=== PATIENT | male | born 1960 | race Caucasian/White ===

== ENCOUNTER → 2017-11-18 12:57 | Outpatient (CLI) | payer BC, SELFPAY | PROVIDERS: PCP Family Medicine; Visit Provider Family Medicine | DX: G47.33 Obstructive sleep apnea (adult) (pediatric) (principal); R40.0 Somnolence; R53.83 Other fatigue | CPT/HCPCS: 95806 ==

== ENCOUNTER → 2019-07-23 08:55 | Outpatient (POV) | payer BC, SELFPAY | PROVIDERS: PCP Audiologist; Visit Provider Audiologist | DX: Z00.00 Encounter for general adult medical examination without abnormal findings (principal) ==

== ENCOUNTER → 2020-04-18 14:35 | Outpatient (CLI) | payer BC, SELFPAY ==
--- NOTE | 2020-04-18 14:38 | CT_ITS ---
PROCEDURE: CT SINUS WO CON CLINICAL HISTORY: CHRONIC SINUSITIS, UNSPECIFIED LOCATION Blood from sinuses COMPARISON: No exams were available for comparison TECHNIQUE: Axial images obtained with sagittal and coronal reformats. All CT scans at the facility use one or more dose reduction, viz: automated exposure control, ma/kV adjustment per patient size (including targeted exams where dose is matched to indication, i.e. head), or iterative reconstruction technique. FINDINGS: The frontal sinuses have an unremarkable appearance. There is a defect within the right ethmoid sinus within the mid aspect of the right ethmoid sinus 1.7 cm in length consistent with an old fracture. Remaining ethmoids are unremarkable. There is a 13 mm retention cyst in the left maxillary sinus. Unremarkable appearing sphenoid sinuses. Mastoid sinuses have an unremarkable appearance. The orbits and TMJs are unremarkable. IMPRESSION: 1. No evidence of acute sinusitis. 2. Old right medial orbital wall fracture. 3. Small retention cyst in the left maxillary sinus. Dictated by: Andrea Black MD 04/19/2020 12:40 Andrea Black MD in [place] 04/19/2020 12:40
== END ==
PROVIDERS: PCP Family Medicine; Visit Provider Family Medicine
DX: J32.9 Chronic sinusitis, unspecified (principal)
CPT/HCPCS: 70486

== ENCOUNTER → 2021-10-02 06:40 | Outpatient (CLI) | payer SELFPAY ==
--- NOTE | 2021-10-02 06:47 | CT_ITS ---
FINAL REPORT CLINICAL HISTORY: . family hx heart disease FINDINGS: CT CORONARY CALCIUM SCORE WITHOUT TECHNIQUE: Thin-section axial images were obtained through the heart and coronary arteries per CT coronary calcium score protocol. This study was performed with techniques to keep radiation doses as low as reasonably achievable, (ALARA). Individualized dose reduction techniques using automated exposure control or adjustment of mA and/or kV according to the patient's size were employed. FINDINGS: On the axial images, there is calcification within the left and right coronary arteries. This gives a coronary artery calcium score of 3876 based on the Agatston scale. This patient has coronary artery score places them within the 97th percentile based on age and gender. The heart size is normal. There is no pleural or pericardial effusion. Limited evaluation of the lungs revealed no suspicious nodule. IMPRESSION: Calcium score of 3876 which places the patient within the 97th percentile based on age and gender. Reviewed, Interpreted and Dictated by Ludwin Arellano III, MD Transcribed by Marti Ames Authenticated and [facility]
== END ==
PROVIDERS: PCP Family Medicine; Visit Provider Family Medicine
DX: Z13.6 Encounter for screening for cardiovascular disorders (principal); Z82.49 Family history of ischemic heart disease and other diseases of the circulatory system
CPT/HCPCS: 75571

== ENCOUNTER 2023-04-22 10:00 | Outpatient (CLI) | payer BC, SELFPAY ==
[2023-04-22 11:15] LABS: Blood Urea Nitrogen 23 mg/dl (9-20); Estimated Glomerular Filt Rate 56 ml/min (>60); GFR (African American) 67 ML/MIN (>60)
[2023-04-22 11:47] LABS: Prostate Specific Ag Screen 1.8 ng/ml (0.0-4.0)
== END 2023-04-22 23:59 ==
LOC: LAB 10:00
PROVIDERS: PCP Family Medicine; Visit Provider Urology
DX: N40.0 Benign prostatic hyperplasia without lower urinary tract symptoms (principal)
CPT/HCPCS: 36415; 82565; 84520; G0103

== ENCOUNTER 2024-03-02 09:07 | Outpatient (CLI) | payer BC, SELFPAY ==
[2024-03-02 10:57] LABS: Blood Urea Nitrogen 29 mg/dl (9-20); Estimated Glomerular Filt Rate 41 ml/min (>60); GFR (African American) 49 ML/MIN (>60)
[2024-03-03 08:14] LABS: PSA, Free 0.37 ng/mL; Prostate Specific Ag 0.8 ng/mL (0.0-4.0); Sex Hormone Binding Globulin 29.2 nmol/L (19.3-76.4); Testosterone,Total 328 ng/dL (264-916)
== END 2024-03-02 23:59 | disposition home or self-care (01) ==
LOC: LAB 09:08
PROVIDERS: PCP Family Medicine; Visit Provider Urology
DX: N40.0 Benign prostatic hyperplasia without lower urinary tract symptoms (principal); N52.9 Male erectile dysfunction, unspecified
CPT/HCPCS: 36415; 82565; 84153; 84154; 84270; 84403; 84520

== ENCOUNTER 2024-03-23 14:41 | Outpatient (CLI) | payer BC, SELFPAY ==
[2024-03-23 16:22] LABS: Blood Urea Nitrogen 28 mg/dl (9-20); Estimated Glomerular Filt Rate 47 ml/min (>60); GFR (African American) 57 ML/MIN (>60)
[2024-03-24 07:21] LABS: Prolactin 8.5 ng/mL (3.6-25.2); Sex Hormone Binding Globulin 31.8 nmol/L (19.3-76.4)
[2024-03-24 08:13] LABS: Estradiol 21.7 pg/mL (7.6-42.6); LH 7.7 mIU/mL (1.7-8.6); Testosterone,Total 338 ng/dL (264-916)
[2024-03-28 19:12] LABS: Dihydrotestosterone DHT 5.4 ng/dL (.)
== END 2024-03-23 23:59 | disposition home or self-care (01) ==
LOC: LAB 14:42
PROVIDERS: PCP Family Medicine; Visit Provider Urology
DX: N19 Unspecified kidney failure (principal); R53.83 Other fatigue; N40.0 Benign prostatic hyperplasia without lower urinary tract symptoms
CPT/HCPCS: 36415; 82565; 82626; 82670; 83001; 83002; 84146; 84270; 84403; 84520

== ENCOUNTER 2024-04-06 10:41 | Outpatient (CLI) | payer BC, SELFPAY ==
[2024-04-06 11:59] LABS: Blood Urea Nitrogen 26 mg/dl (9-20); Estimated Glomerular Filt Rate 44 ml/min (>60); GFR (African American) 53 ML/MIN (>60)
== END 2024-04-06 23:59 | disposition home or self-care (01) ==
LOC: LAB 10:41
PROVIDERS: PCP Family Medicine; Visit Provider Urology
DX: N19 Unspecified kidney failure (principal)
CPT/HCPCS: 36415; 82565; 84520

== ENCOUNTER 2024-04-07 10:24 | Outpatient (CLI) | payer BC, SELFPAY ==
--- NOTE | 2024-04-07 10:29 | XR_ITS ---
FINAL REPORT CLINICAL HISTORY: Renal failure pain in lower R back, especially when urinating COMPARISON: None FINDINGS: A single supine view the abdomen was obtained. The bowel gas pattern is nonspecific but nonobstructive. There are no convincing renal stones. Surgical clips are present in the right abdomen. Osseous structures are within normal limits. IMPRESSION: Nonspecific but nonobstructive bowel gas pattern. Reviewed, Interpreted and Dictated by Polina Pennington MD Transcribed by Nasrin Freeman Authenticated and [facility]
--- NOTE | 2024-04-07 10:37 | US_ITS ---
FINAL REPORT TECHNIQUE: Ultrasound images of the kidneys and bladder were obtained. CLINICAL HISTORY: .renal failure COMPARISON: None FINDINGS: The right kidney measures 14.0 cm in length. There is no hydronephrosis, mass, or stone. There is a very small exophytic cyst. Cortical echogenicity and thickness are normal. The left kidney measures 12.5 cm in length. There is no hydronephrosis. There is an echogenic focus in the mid left kidney, nonobstructing stone not excluded. Cortical echogenicity and thickness are normal. IMPRESSION: Very small right renal cyst. Possible left renal stone. Reviewed, Interpreted and Dictated by Polina Pennington MD Transcribed by Nasrin Freeman Authenticated and [facility]
== END 2024-04-07 23:59 | disposition home or self-care (01) ==
LOC: RAD 10:26
PROVIDERS: PCP Family Medicine; Visit Provider Urology
DX: N19 Unspecified kidney failure (principal)
CPT/HCPCS: 74018; 76770

== ENCOUNTER 2025-02-09 08:27 | Outpatient (CLI) | payer OTHER, SELFPAY ==
--- OUTSIDE RECORDS SUMMARY | 2023-12-13 04:00 | XMS_ITS ---
Author Organization [facility] Address [address] [place] [id number] Care Team Providers Care Ways Operator Name Role Phone Reinaldo Figueroa Primary Care Provider Allergies Allergen (clinical drug ingredient) Drug/Non Drug Allergy documented on EMR Reaction Allergy Type Onset Date Status niacin Niacin anaphylaxis Drug Allergy Activ e Results Component Value Reference Range Notes P-Basic Metabolic Panel (BMP ) Reviewed date:12/17/2023 04:19:09 PM Interpretation:bun 33, Cr 1.6, gfr 48 Performing Lab: Notes/Report: Test performed by [facility] [address] [place] [address] , [address], [place] [address] Mateusz Cortes MD, Negative Checker CLIA: [id number] Sodium 140 135-145 mmol/L Potassium 4.5 3.5-5.3 mmol/L Chloride 103 97-108 mmol/L CO2 25 22-32 mmol/L Glucose 95 65-99 mg/dL BUN 33 8-23 mg/dL Creatinine 1.60 0.70-1.30 mg/dL Calcium 9.8 8.6-10.4 mg/dL eGFR by Creatinine 48 >59 mL/min/1.73m2 P-Phosphorus Reviewed date:12/17/2023 04:19:10 PM Interpretation:Normal Performing Lab: Notes/Report: Test performed by [facility] [address] [place] [address] , [address], [place] [address] Mateusz Cortes MD, Negative Checker CLIA: [id number] Phosphorus 3.1 2.5-4.5 mg/dL P-Vitamin D 25-Hydroxy Reviewed date:12/17/2023 04:19:10 PM Interpretation:44.5 Performing Lab: Notes/Report: Test performed by [facility] [address] [place] [address] , [address], [place] [address] Mateusz Cortes MD, Negative Checker CLIA: [id number] Vitamin D 25-Hydroxy 44.5 30.0-100.0 ng/mL Interpretation of Vitamin D 25 OH: < 20 ng/mL - Deficiency 20 - 29 ng/mL - Insufficiency 30 - 100 ng/mL - Sufficiency > 100 ng/mL - Super-therapeutic- toxicity may occur above this level. Clinical correlation required. REASON FOR VISIT 6 month check Medications Medication SIG (Take, Route, Frequency, Duration) Notes Start Date End Date Status Irbesartan 300 MG 1 tab(s) orally once a day; Duration: 90 days 12/19/2020 Active Metoprolol Succinate ER 25 MG 1 tab(s) orally once a day; Duration: 90 days Active Finasteride 5 MG 1 tablet Orally Once a day; Duration: 30 day(s) Active oxyBUTYnin Chloride ER 10 MG 1 tablet Orally Once a day; Duration: 30 day(s) Active Crestor 40 MG 1 tab(s) orally once a day (at bedtime); Duration: 90 days Active Astepro 205.5 MCG/SPRAY 2 sprays in each nostril Nasally Once a day 12/13/2023 Active Alfuzosin HCl ER 10 MG 1 tablet immediat timo after the same meal Orally Once a day; Duration: 90 days 03/06/2023 Active Tamsulosin HCl 0.4 MG 1 capsule Orally O nce a day; Duration: 30 day(s) Active Zetia 10 MG 1 tab(s) orally once a day; Duration: 90 days 05/25/2022 Active Aspirin 81 MG 1 tablet Orally Once a day; Duration: 90 days Active Meloxicam 15 MG 1 tab(s) orally once a day; Duration: 90 days 01/01/2011 Active Synthroid 125 MCG 1 tab(s) orally once a day; Duration: 90 days Active Fenofibrate 145 MG 1 tab(s) orally once a day; Duration: 90 days Active Pantoprazole Sodium 40 MG 1 tab(s) orall y once a day; Duration: 90 days 06/07/2015 Active Vitamin D3 50 MCG (1999 UT) 2 tab(s) ora lly once a day 11/01/2017 Active Farxiga 10 MG 1 tablet Orally Once a day; Duration: 90 days 11/21/2022 Active amLODIPine Besylate 2.5 MG 1 tab(s) oral ly once a day; Duration: 90 days Active Immunizations Vaccine Route Administration Date Status Comme nts Fluzone Quad (6months&older) IM Intramuscular 12/13/2023 Administered Vital Signs Weight 250.8 lbs 12/13/2023 Blood pressure systolic 114 mm Hg 12/13/19 24 Blood pressure diastolic 71 mm Hg 024 Heart Rate 74 /min 12/13/2023 Height 72 in 12/13/2023 BMI 34.01 kg/m2 12/13/2023 Encounters Encounter Location Date [facility] [address] [id number] 12/13/2023 Reinaldo Figueroa Primary hypertension I10 ; Stage 3a chronic kidney disease N18.31 ; Vitamin D deficiency E55.9 ; Allergic rhinitis, unspecified seasonality, unspecified trigger J30.9 ; Encounter for immunization Z23 ; Onycholysis L60.1 ; Gastroesophageal reflux disease, esophagitis presence not specified K21.9 ; Hypertriglyceridemia E78.1 ; Mixed hyperlipidemia E78.2 ; Acquired hypothyroidism E03.9 and Polyarthralgia M25.50 Assessments Encounter Date Diagnosis (ICD Code) Assessment Notes Treatment Notes Treatment Clinical Notes Section Notes 12/13/2023 Primary hypertension (ICD-10 - I10) 12/13/2023 Stage 3a chronic kid everardo disease (ICD-10 - N18.31) 12/13/2023 Vitamin D deficiency (ICD-10 - E55.9) 12/13/2023 Allergic rhinitis, unspecified seasonality, unspecified trigger (ICD-10 - J30.9) 12/13/2023 Encounter for immunization (ICD-10 - Z23) 12/13/2023 Onycholysis (ICD-10 - L60.1) 12/13/2023 Gastroesophageal ref lux disease, esophagitis presence not specified (ICD-10 - K21.9) 12/13/2023 Hypertriglyceridemia (ICD-10 - E78.1) 12/13/2023 Mixed hyperlipidemia (ICD-10 - E78.2) 12/13/2023 Acquired hypothyroid ism (ICD-10 - E03.9) 12/13/2023 Polyarthralgia (ICD- 10 - M25.50) Plan Of Treatment Medication Medication Name Sig Start Date Stop Date Notes Irbesartan 300 MG 1 tab(s) orally once a day; Duration: 90 days 12/19/2020 Metoprolol Succinate ER 25 MG 1 tab(s) o rally once a day; Duration: 90 days Terbinafine HCl 250 MG 1 tablet Orally Once a day 06/13/19 Crestor 40 MG 1 tab(s) orally once a day (at bedtime); Duration: 90 days Astepro 205.5 MCG/SPRAY 2 sprays in each nostril Nasally Once a day 12/13/2023 Zetia 10 MG 1 tab(s) orally once a day; Duration: 90 days 05/25/2022 Aspirin 81 MG 1 tablet Orally Once a day; Duration: 90 days Meloxicam 15 MG 1 tab(s) orally once a day; Duration: 90 days 01/01/2011 Synthroid 125 MCG 1 tab(s) orally once a day; Duration: 90 days Fenofibrate 145 MG 1 tab(s) orally once a day; Duration: 90 days Pantoprazole Sodium 40 MG 1 tab(s) orall y once a day; Duration: 90 days 06/07/2015 Farxiga 10 MG 1 tablet Orally Once a day; Duration: 90 days 11/21/2022 amLODIPine Besylate 2.5 MG 1 tab(s) oral ly once a day; Duration: 90 days Next Appt Details Follow Up: 6 Months, Reason: Progress Notes * Cain NEWTONOB:1960 (64 yo M)Acc No.[id number]:12/13/2023 Progress Notes Patient: Ge ROBLES Provider: Grazyna Figueroa M.D. :1960 A ge:63 Y S ex:Male Date:12/13/2023 Address:[address] [place] [address] [place], [place], [id number] Subjective: * Chief Complaints: * 1 . 6 month check. * HPI: C ardiology: 63 year old male presents with c/o Blood Pressure Elevated P t here for 6 mo f/u on hypertension, states he is doing well and does not have any concerns. c/o Hyperlipidemia P t is fasting today. E ndocrinology: c/o Hypothyroidism P t here to f/u. * ROS: D ERMATOLOGY: no R camden. n o H zak. G ASTROENTEROLOGY: no N ausea. n o V omiting. U ROLOGY: no D ifficulty urinating. n o B lood in urine. * Medical History: H ypercholestrolemia, Hypothyroidism, Esophageal Reflux, Low Back Pain, h/o Lumbar Herniated Disc, Colon Polyps, Sleep Apnea, Coronary Artery Disease, abnormal coronary calcium score and stress test, PCI with stent 2021. * Surgical History: L umbar Spine Fusion 12/2002, LT Shoulder Labrum Repair 09/2005, L5 Diskectomy 09/07/2011, Cholecystectomy , Hernia , Colonoscopy, 2016 , Percutaneous Coronary Intervention 11/2021. * Hospitalization/Major Diagno stic Procedure: D luzmaria Past Hospitalization. * Family History: F ather: alive, heart disease. M other: alive. M aternal Grand Father: cancer. M aternal Grand Mother: cancer. M aternal uncle: cancer. M aternal aunt: cancer. C hildren: hyperlipidemia. 1 brother(s) , 1 sister(s) - healthy. 1 son(s) , 1 daughter(s) . . * Social History: C URRENT TOBACCO USE S moking Status: Patient does smoke, Former Smoker: Yes, Quit smokin, Smoking pack year history: 1, Second hand smoke exposure: No. C affeine: yes, frequency:. Marital Status: . Occupation: [employer]. Past smoking status: yes, Smoking status: Patient does smoke, Packs per day: 1. Recreational drug use: no. Alcohol: Yes, Type: , Frequency: ,Years: , Determination:. * Medications: T aking Tamsulosin HCl 0.4 MG Capsule 1 capsule Orally Once a day , Taking Aspirin 81 MG Tablet Delayed Release 1 tablet Orally Once a day , Taking oxyBUTYnin Chloride ER 10 MG Tablet Extended Release 24 Hour 1 tablet Orally Once a day , Taking Finasteride 5 MG Tablet 1 tablet Orally Once a day , Taking amLODIPine Besylate 2.5 MG Tablet 1 tab(s) orally once a day , Taking Vitamin D3 50 MCG (2000 UT) Capsule 2 tab(s) orally once a day , Taking Metoprolol Succinate ER 25 MG Tablet Extended Release 24 Hour 1 tab(s) orally once a day , Taking Crestor 40 MG Tablet 1 tab(s) orally once a day (at bedtime) , Taking Zetia 10 MG Tablet 1 tab(s) orally once a day , Taking Fenofibrate 145 MG Tablet 1 tab(s) orally once a day , Taking Pantoprazole Sodium 40 MG Tablet Delayed Release 1 tab(s) orally once a day , Taking Meloxicam 15 MG Tablet 1 tab(s) orally once a day , Taking Alfuzosin HCl ER 10 MG Tablet Extended Release 24 Hour 1 tablet immediately after the same meal Orally Once a day , Taking Synthroid 125 MCG Tablet 1 tab(s) orally once a day , Taking Irbesartan 300 MG Tablet 1 tab(s) orally once a day , Taking Farxiga 10 MG Tablet 1 tablet Orally Once a day , Taking Terbinafine HCl 250 MG Tablet 1 tablet Orally Once a day , Discontinued Brilinta 90 MG Tablet 1 tab(s) orally 2 times a day , Discontinued Nitroglycerin 0.4 MG/HR Patch 24 Hour 1 PATCH transdermally once a day , Discontinued Triamcinolone Acetonide 0.1 % Cream 1 eloy applied topically 3 times a day , Medication List reviewed and reconciled with the patient * Allergies: N iacin: anaphylaxis. Objective: * Vitals: W t:250.8, Temp:97.7, BP:114/71, HR:74, Nurse:booker, Ht: 72, BMI:34.01. * Examination: E ndocrinology: General Appearance: N AD. H EENT: u nremarkable.?Heart: R SR. L ungs: c lear to auscultation. E xtremities: n o leg edema.? Assessment: * Assessment: 1. P rimary hypertension - I10 (Primary) 2 . S tage 3a chronic kidney disease - N18.31 3 . V itamin D deficiency - E55.9 4 . A llergic rhinitis, unspecified seasonality, unspecified trigger - J30.9 5 . E ncounter for immunization - Z23 6 . O nycholysis - L60.1 7 . G astroesophageal reflux disease, esophagitis presence not specified - K21.9 8 . H ypertriglyceridemia - E78.1 9 . M ixed hyperlipidemia - E78.2 1 0. A cquired hypothyroidism - E03.9 1 1. P olyarthralgia - M25.50 Plan: * Treatment: 2. S tage 3a chronic kidney disease Refill Farxiga Tablet, 10 MG, 1 tablet, Orally, Once a day, 90 days, 90, Refills 1. L AB: P-Basic Metabolic Panel (BMP) (Collection Date & Time - 12/13/2023 08:30 AM) b un 33, Cr 1.6, gfr 48 Value Reference Range B UN 33 H 8-23 - mg/dL * C alcium 9.8 8.6-10.4 - mg/dL * C hloride 103 97-108 - mmol/L * C O2 25 22-32 - mmol/L * C reatinine 1.60 H 0.70-1.30 - mg/dL * G lucose 95 65-99 - mg/dL * P otassium 4.5 3.5-5.3 - mmol/L * S odium 140 135-145 - mmol/L * e GFR by Creatinine 48 L >59 - mL/min/1.73m2 * Jocelyne Rosas 12/17/2023 4:1 8:54 PM >See phone encounter ?LAB: P-Phosphorus (Collection Date & Time - 12/13/2023 08:30 AM)?Normal* Value Reference Range P hosphorus 3.1 2.5-4.5 - mg/dL * Jocelyne Rosas 12/17/2023 4:1 8:54 PM >See phone encounter 3.?Vitamin D deficiency?LAB: P-Vitamin D 25-Hydroxy (Collection Date & Time - 12/13/2023 08:30 AM)? 44.5* Value Reference Range V itamin D 25-Hydroxy 44.5 30.0-100.0 - ng/mL * Jocelyne Rosas 12/17/2023 4:1 8:54 PM >See phone encounter 4.?Allergic rhinitis, unspecified seasonality, unspecified trigger? Start Astepro Solution, 205.5 MCG/SPRAY, 2 sprays in each nostril, Nasally, Once a day.??5.?Onycholysis? Stop Terbinafine HCl Tablet, 250 MG, 1 tablet, Orally, Once a day.?? 6.?Gastroesophageal reflux disease, esophagitis presence not specified? Refill Pantoprazole Sodium Tablet Delayed Release, 40 MG, 1 tab(s), orally, once a day, 90 days, 90, Refills 1.??7.?Hypertriglyceridemia? Refill Fenofibrate Tablet, 145 MG, 1 tab(s), orally, once a day, 90 days, 90, Refills 1.??8.?Mixed hyperlipidemia? Refill Zetia Tablet, 10 MG, 1 tab(s), orally, once a day, 90 days, 90, Refills 1;?Refill Crestor Tablet, 40 MG, 1 tab(s), orally, once a day (at bedtime), 90 days, 90, Refills 1.??9.?Acquired hypothyroidism? Refill Synthroid Tablet, 125 MCG, 1 tab(s), orally, once a day, 90 days, 90, Refills 1.??10.?Polyarthralgia? Refill Meloxicam Tablet, 15 MG, 1 tab(s), orally, once a day, 90 days, 90, Refills 1.??11.?Others? Refill Aspirin Tablet Delayed Release, 81 MG, 1 tablet, Orally, Once a day, 90 days, 90, Refills 1. ? * Immunizations: Fluzone Quad (6months&older) : 0.5 mL (Route: Intramuscular) given by Neetu Fritz on Right Deltoid (Encounter for immunization) * Follow Up: 6 Months * Images: Billing Information: * Visit Code: 27710 Office Visit, Est Pt., Level 4. * Procedure Codes: * Electronic signature of Muriel Figueroa MD on 02/09/2025 at 08:32 AM EST Sign off status: Pending * Provider: Grazyna Figueroa M.D. Date: Generated for Printi ng/Melissa/Rodolfosmitting on: 1 04/12/2024 08:32 AM EST History and Physical Notes * HPI (History of Present Illness) Category Sub-Category Detail Notes Category Not es Endocrinology Hypothyroidism Pt here to f/u Cardiology Blood Pressure Elevated Pt here for 6 mo f/u on hypertension, states he is doing well and does not have any concerns Hyperlipidemia Pt is fasting today Examination Category Sub-Category Detail Notes Category Not es Endocrinology HEENT: unremarkable Heart: RSR Lungs: clear to auscultatio n Extremities: no leg edema General Appearance: NAD
--- OUTSIDE RECORDS SUMMARY | 2024-06-12 04:00 | XMS_ITS ---
Author Organization [facility] Address [address] [place] [phone] Care Team Providers Care Veneer Department Manager Name Role Phone Reinaldo Figueroa Primary Care Provider [phone] Allergies Allergen (clinical drug ingredient) Drug/Non Drug Allergy documented on EMR Reaction Allergy Type Onset Date Status niacin Niacin anaphylaxis Drug Allergy Activ e Results Component Value Reference Range Notes P-Comprehensive Metabolic Pa mitesh (CMP) Reviewed date:06/16/2024 09:18:19 AM Interpretation:Cr 1.62, gfr 47 Performing Lab: Notes/Report: Test performed by [facility] [address] [place] [address] , [address], [place] [address] Mateusz Cortes MD, Twitchell Operator CLIA: [id number] Sodium 137 135-145 mmol/L Potassium 4.6 3.5-5.3 mmol/L Chloride 101 97-108 mmol/L CO2 23 22-32 mmol/L Glucose 95 65-99 mg/dL BUN 22 8-23 mg/dL Creatinine 1.62 0.70-1.30 mg/dL Calcium 10.1 8.6-10.4 mg/dL eGFR by Creatinine 47 >59 mL/min/1.73m2 Protein 7.5 6.0-8.3 g/dL Albumin 4.4 3.5-5.3 g/dL Alkaline Phosphatase 40 40-129 IU/L ALT (SGPT) 18 <5-55 IU/L AST (SGOT) 10 <5-46 IU/L Bilirubin, Total 0.4 <0.2-1.2 mg/dL A/G Ratio 1.4 1.1-2.5 P-Lipid Panel Reviewed date:06/16/2024 09:18:19 AM Interpretation:hdl 38 Performing Lab: Notes/Report: Test performed by [facility] [address] [place] [address] , [place] [address] Mateusz Cortes MD, Twitchell Operator CLIA: [id number] Cholesterol 163 <200 mg/dL Triglycerides 135 <150 mg/dL HDL Cholesterol 38 >39 mg/dL Cholesterol / HDL Ratio 4.29 0.00-4.99 Ratio Non-HDL Cholesterol 125 <130 mg/dL LDL Cholesterol (Calculation) 98 <130 mg/dL LDL Cholesterol Levels* Less than 100 mg/dL Optimal 100 to 129 mg/dL Near Optimal/ Above Optimal 130 to 159 mg/dL Borderline High 160 to 189 mg/dL High 190 mg/dL and above Very High * Categories as recommended by the 2004 ATPIII guidelines LDL/HDL Ratio 2.6 <3.3 Ratio LDL Cholesterol Patient History Test Date: 06/13/2023 LDL Results: 139 Units: mg/dL % Change: - Test Date: 06/12/2024 LDL Results: 98 Units: mg/dL % Change: -29% P-TSH reflex to FT4 Reviewed date:06/16/2024 09:18:19 AM Interpretation: Normal Performing Lab: Notes/Report: Test performed by [facility] [address] [place] [address] , [address], [place] [address] Mateusz Cortes MD, Twitchell Operator CLIA: [id number] TSH reflex to FT4 1.10 0.43-5.25 mU/L P-Microalbumin/Creatinine, R andom Urine Sample Reviewed date:06/16/2024 09:18:19 AM Interpretation: Normal Performing Lab: Notes/Report: Test performed by [facility] [address] [place] [address] , [address], [place] [id number] Mateusz Cortes MD, Twitchell Operator CLIA: [id number] Albumin/Creatinine Ratio, Urine 9 0-30 ug/m g Microalbumin, Urine, Random 0.4 Creatinine, Urine 46.1 P-Vitamin D 25-Hydroxy Reviewed date:06/16/2024 09:18:19 AM Interpretation: Normal Performing Lab: Notes/Report: Test performed by [facility] [address] [place] [address] , [address], [place] [address] Mateusz Cortes MD, Twitchell Operator CLIA: [id number] Vitamin D 25-Hydroxy 55.7 30.0-100.0 ng/mL Interpretation of Vitamin D 25 OH: < 20 ng/mL - Deficiency 20 - 29 ng/mL - Insufficiency 30 - 100 ng/mL - Sufficiency > 100 ng/mL - Super-therapeutic- toxicity may occur above this level. Clinical correlation required. Reason For Referral Diagnosis 1 Benign prostatic hyp erplasia with lower urinary tract symptoms, symptom details unspecified (N40.1) Referral Organization [facility] Referring Provider First Name Reinaldo Referring Provider Last Name Carolina Referring Provider Speciality Family Pra ctice Referred Provider Del Drake Referred Provider Specialty Urology Referral Priority Routine REASON FOR VISIT 6 Month Check Up Medications Medication SIG (Take, Route, Frequency, Duration) Notes Start Date End Date Status Aspirin 81 MG 1 tablet Orally Once a day; Duration: 90 days Active oxyBUTYnin Chloride ER 10 MG 1 tablet Orally Once a day; Duration: 90 days Active Repatha 140 MG/ML 1 mL Subcutaneous Ev ирина 2 weeks Active Tamsulosin HCl 0.4 MG 1 capsule Orally O nce a day; Duration: 30 day(s) Active Zetia 10 MG 1 tab(s) orally once a day; Duration: 90 days 05/25/2022 Active Crestor 40 MG 1 tab(s) orally once a day (at bedtime); Duration: 90 days Active Synthroid 125 MCG 1 tab(s) orally once a day; Duration: 90 days Active Irbesartan 300 MG 1 tab(s) orally once a day; Duration: 90 days 12/19/2020 Active amLODIPine Besylate 2.5 MG 1 tab(s) oral ly once a day; Duration: 90 days Active Farxiga 10 MG 1 tablet Orally Once a day; Duration: 90 days 11/21/2022 Active Pantoprazole Sodium 40 MG 1 tab(s) orall y once a day; Duration: 90 days 06/07/2015 Active Fenofibrate 145 MG 1 tab(s) orally once a day; Duration: 90 days Active Metoprolol Succinate ER 25 MG 1 tab(s) orally once a day; Duration: 90 days Active Problems Problem Type SNOMED Code ICD Code Onset Dates Problem Status W/U Status Risk Notes Problem Lower urinary tract symptoms due to benign prostatic hypertrophy ([id number]) Benign prostatic hyperplasia with lower urinary tract symptoms, symptom details unspecified (N40.1) Active confirmed Vital Signs Weight 265 lbs 06/12/2024 Blood pressure systolic 122 mm Hg 06/13/19 25 Blood pressure diastolic 70 mm Hg 025 Heart Rate 73 /min 06/12/2024 Height 72 in 06/12/2024 BMI 35.94 kg/m2 06/12/2024 Encounters Encounter Location Date Provider Diagnosis [facility] [address] [place], [place] [id number] 06/12/2024 Reinaldo Guadalupe Primary hypertension I10 ; Mixed hyperlipidemia E78.2 ; Stage 3a chronic kidney disease N18.31 ; Coronary artery disease involving tolowa dee-ni' coronary artery of tolowa dee-ni' heart without angina pectoris I25.10 ; Obstructive sleep apnea syndrome G47.33 ; Gastroesophageal reflux disease, esophagitis presence not specified K21.9 ; Vitamin D deficiency E55.9 ; Non morbid obesity E66.9 and Benign prostatic hyperplasia with lower urinary tract symptoms, symptom details unspecified N40.1 Assessments Encounter Date Diagnosis (ICD Code) Assessment Notes Treatment Notes Treatment Clinical Notes Section Notes 06/12/2024 Primary hypertension (ICD-10 - I10) 06/12/2024 Mixed hyperlipidemia (ICD-10 - E78.2) 06/12/2024 Stage 3a chronic kidney disease (ICD-10 - N18.31) 06/12/2024 Coronary artery disease involving tolowa dee-ni' coronary artery of tolowa dee-ni' heart without angina pectoris (ICD-10 - I25.10) 06/12/2024 Obstructive sleep apnea syndrome (ICD-10 - G47.33) 06/12/2024 Gastroesophageal reflux disease, esophagitis presence not specified (ICD-10 - K21.9) 06/12/2024 Vitamin D deficiency (ICD-10 - E55.9) 06/12/2024 Non morbid obesity (ICD-10 - E66.9) 06/12/2024 Benign prostatic hyperplasia with lower urinary tract symptoms, symptom details unspecified (ICD-10 - N40.1) Plan Of Treatment Medication Medication Name Sig Start Date Stop Date Notes oxyBUTYnin Chloride ER 10 MG 1 tablet Or ally Once a day; Duration: 90 days Referrals Referral Date Details 06/12/2024 06/12/2024, Del Campbell Appt Details Follow Up: 6 Months, Reason: Progress Notes * Cain NEWTONOB:1960 (64 yo M)Acc No.[id number]:06/12/2024 Progress Notes Patient: Ge ROBLES Provider: Grazyna Figueroa M.D. :1960 A ge:63 Y S ex:Male Date:06/12/2024 Address:[address] [place] [address] Subjective: * Chief Complaints: * 1 . 6 Month Check Up. * HPI: C ardiology: 63 year old male presents with c/o Blood Pressure Elevated P t here for 6 mo f/u on hypertension, states he is doing well and does not have any concerns. c/o Hyperlipidemia P t is fasting today. E ndocrinology: c/o Hypothyroidism P t here to f/u . * ROS: D ERMATOLOGY: no R [place]. [...] affeine: yes, frequency:. Marital Status: . Occupation: [employer]. Past smoking status: yes, Smoking status: Patient does smoke, Packs per day: 1. Recreational drug use: no. Alcohol: Yes, Type: , Frequency: ,Years: , Determination:. * Medications: T aking Repatha 140 MG/ML Solution Prefilled Syringe 1 mL Subcutaneous Every 2 weeks , Taking Tamsulosin HCl 0.4 MG Capsule 1 capsule Orally Once a day , Taking oxyBUTYnin Chloride ER 10 MG Tablet Extended Release 24 Hour 1 tablet Orally Once a day , Taking Metoprolol Succinate ER 25 MG Tablet Extended Release 24 Hour 1 tab(s) orally once a day , Taking Irbesartan 300 MG Tablet 1 tab(s) orally once a day , Taking amLODIPine Besylate 2.5 MG Tablet 1 tab(s) orally once a day , Taking Farxiga 10 MG Tablet 1 tablet Orally Once a day , Taking Pantoprazole Sodium 40 MG Tablet Delayed Release 1 tab(s) orally once a day , Taking Fenofibrate 145 MG Tablet 1 tab(s) orally once a day , Taking Synthroid 125 MCG Tablet 1 tab(s) orally once a day , Taking Zetia 10 MG Tablet 1 tab(s) orally once a day , Taking Crestor 40 MG Tablet 1 tab(s) orally once a day (at bedtime) , Taking Aspirin 81 MG Tablet Delayed Release 1 tablet Orally Once a day , Discontinued Finasteride 5 MG Tablet 1 tablet Orally Once a day , Discontinued Vitamin D3 50 MCG (1999) Capsule 2 tab(s) orally once a day , Discontinued Astepro 205.5 MCG/SPRAY Solution 2 sprays in each nostril Nasally Once a day , Discontinued Meloxicam 15 MG Tablet 1 tab(s) orally once a day , Discontinued Alfuzosin HCl ER 10 MG Tablet Extended Release 24 Hour 1 tablet immediately after the same meal Orally Once a day , Medication List reviewed and reconciled with the patient * Allergies: N iacin: anaphylaxis. Objective: * Vitals: W t: 265, Temp: 97.8, BP: 122/70, HR: 73, Nurse: booker, Ht: 72, BMI:35.94. * Examination: E ndocrinology: General Appearance: N AD. H EENT: u nremarkable.?Heart: R SR. L ungs: c lear to auscultation. E xtremities: n o leg edema.? Assessment: * Assessment: 1. M ixed hyperlipidemia - E78.2 2 . P rimary hypertension - I10 3 . S tage 3a chronic kidney disease - N18.31 4 . C oronary artery disease involving tolowa dee-ni' coronary artery of tolowa dee-ni' heart without angina pectoris - I25.10 5. O bstructive sleep apnea syndrome - G47.33 6 . G astroesophageal reflux disease, esophagitis presence not specified - K21.9 7 . V itamin D deficiency - E55.9 8 . N on morbid obesity - E66.9 9 . B enign prostatic hyperplasia with lower urinary tract symptoms, symptom details unspecified - N40.1 ? Plan: * Treatment: Value Reference Range A /G Ratio 1.4 1.1-2.5 - * A lbumin 4.4 3.5-5.3 - g/dL * A lkaline Phosphatase 40 40-129 - IU/L * A LT (SGPT) 18 <5-55 - IU/L * A ST (SGOT) 10 <5-46 - IU/L * B ilirubin, Total 0.4 <0.2-1.2 - mg/dL * B UN 22 8-23 - mg/dL * C alcium 10.1 8.6-10.4 - mg/dL * C hloride 101 97-108 - mmol/L * C O2 23 22-32 - mmol/L * C reatinine 1.62 H 0.70-1.30 - mg/dL * G lucose 95 65-99 - mg/dL * P otassium 4.6 3.5-5.3 - mmol/L * S odium 137 135-145 - mmol/L * P rotein 7.5 6.0-8.3 - g/dL * e GFR by Creatinine 47 L >59 - mL/min/1.73m2 * Brittany Montoya 06/16/2024 09:1 8:12 AM > See phone encounter ?LAB: P-Lipid Panel (Collection Date & Time - 06/12/2024 08:49 AM)?hdl 38* Value Reference Range C holesterol / HDL Ratio 4.29 0.00-4.99 - Ratio * C holesterol 163 <200 - mg/dL * H DL Cholesterol 38 L >39 - mg/dL * L DL Cholesterol (Calculation) 98 <130 - mg/d L * L DL/HDL Ratio 2.6 <3.3 - Ratio * N on-HDL Cholesterol 125 <130 - mg/dL * T riglycerides 135 <150 - mg/dL * Brittany Montoya 06/16/2024 09:1 8:12 AM > See phone encounter ?LAB: P-TSH reflex to FT4 (Collection Date & Time - 06/12/2024 08:49 AM)? Normal* Value Reference Range T SH reflex to FT4 1.10 0.43-5.25 - mU/L * Brittany Montoya 06/16/2024 09:1 8:12 AM > See phone encounter 2.?Primary hypertension?LAB: P-Comprehensive Metabolic Panel (CMP) (Collection Date & Time - 06/12/2024 08:49 AM)?Cr 1.62, gfr 47* Value Reference Range A /G Ratio 1.4 1.1-2.5 - * A lbumin 4.4 3.5-5.3 - g/dL * A lkaline Phosphatase 40 40-129 - IU/L * A LT (SGPT) 18 <5-55 - IU/L * A ST (SGOT) 10 <5-46 - IU/L * B ilirubin, Total 0.4 <0.2-1.2 - mg/dL * B UN 22 8-23 - mg/dL * C alcium 10.1 8.6-10.4 - mg/dL * C hloride 101 97-108 - mmol/L * C O2 23 22-32 - mmol/L * C reatinine 1.62 H 0.70-1.30 - mg/dL * G lucose 95 65-99 - mg/dL * P otassium 4.6 3.5-5.3 - mmol/L * S odium 137 135-145 - mmol/L * P rotein 7.5 6.0-8.3 - g/dL * e GFR by Creatinine 47 L >59 - mL/min/1.73m2 * Brittany Montoya 06/16/2024 09:1 8:12 AM > See phone encounter ?LAB: P-Microalbumin/Creatinine, Random Urine Sample (Collection Date & Time - 06/12/2024 08:59 AM)?Normal* Value Reference Range A lbumin/Creatinine Ratio, Urine 9 0-30 - ug /mg * C reatinine, Urine 46.1 - mg/dL * M icroalbumin, Urine, Random 0.4 - mg/dL * LindsayBrittany camp 06/16/2024 09:1 8:12 AM > See phone encounter 3.?Stage 3a chronic kidney disease?LAB: P-Comprehensive Metabolic Panel (CMP) (Collection Date & Time - 06/12/2024 08:49 AM)?Cr 1.62, gfr 47* Value Reference Range A /G Ratio 1.4 1.1-2.5 - * A lbumin 4.4 3.5-5.3 - g/dL * A lkaline Phosphatase 40 40-129 - IU/L * A LT (SGPT) 18 <5-55 - IU/L * A ST (SGOT) 10 <5-46 - IU/L * B ilirubin, Total 0.4 <0.2-1.2 - mg/dL * B UN 22 8-23 - mg/dL * C alcium 10.1 8.6-10.4 - mg/dL * C hloride 101 97-108 - mmol/L * C O2 23 22-32 - mmol/L * C reatinine 1.62 H 0.70-1.30 - mg/dL * G lucose 95 65-99 - mg/dL * P otassium 4.6 3.5-5.3 - mmol/L * S odium 137 135-145 - mmol/L * P rotein 7.5 6.0-8.3 - g/dL * e GFR by Creatinine 47 L >59 - mL/min/1.73m2 * Brittany Montoya 06/16/2024 09:1 8:12 AM > See phone encounter 4.?Vitamin D deficiency?LAB: P-Vitamin D 25-Hydroxy (Collection Date & Time - 06/12/2024 08:49 AM)? Normal* Value Reference Range V itamin D 25-Hydroxy 55.7 30.0-100.0 - ng/mL * Brittany Montoya 06/16/2024 09:1 8:12 AM > See phone encounter 5.?Benign prostatic hyperplasia with lower urinary tract symptoms, symptom details unspecified? Referral To:eDl Drake??Urology ?Reason: 6.?Others? Refill oxyBUTYnin Chloride ER Tablet Extended Release 24 Hour, 10 MG, 1 tablet, Orally, Once a day,90 days, 90, Refills 1.?? * Procedure Codes: 3 074F SYST BP LT 130 MM HG, 3078F DIAST BP < 80 MM HG * Follow Up: 6 Months * Images: Billing Information: * Visit Code: 47793 Office Visit, Est Pt., Level 4. * Procedure Codes: 3074F SYST BP LT 130 MM HG. 3078F DIAST BP < 80 MM HG. * Electronic signature of Muriel Figueroa MD on 02/09/2025 at 08:32 AM EST Sign off status: Pending * Provider: Grazyna Figueroa M.D. Date: 0 06/12/2024 Generated for Jaimee cobos/Melissa/eTransmitting on: 1 04/12/2024 08:32 AM EST History [...] Extremities: no leg edema General Appearance: NAD Consultation Request Notes Referral Date Referring Provider Referred Provider Not es 06/12/2024 Reinaldo Figueroa Kevin
--- OUTSIDE RECORDS SUMMARY | 2024-09-24 05:15 | XMS_ITS ---
Author Organization [facility] Address [address] [place], [place] [id number] Care Team Providers Care Doctor Of Naprapathy Name Role Phone Reinaldo Figueroa Primary Care Provider [phone] Allergies Allergen (clinical drug ingredient) Drug/Non Drug Allergy documented on EMR Reaction Allergy Type Onset Date Status niacin Niacin anaphylaxis Drug Allergy Activ e Results Component Value Reference Range Notes P-Basic Metabolic Panel (BMP ) Reviewed date:09/25/2024 11:09:50 AM Interpretation:bun 26, Cr 1.43, gfr 54 Performing Lab: Notes/Report: Test performed by [facility] [address] [place] [address] , [address], [place] [address] Mateusz Cortes MD, Propeller Layout Worker CLIA: [id number] Sodium 138 135-145 mmol/L Potassium 4.6 3.5-5.3 mmol/L Chloride 103 97-108 mmol/L CO2 22 20-32 mmol/L Glucose 86 65-99 mg/dL BUN 26 8-23 mg/dL Creatinine 1.43 0.70-1.30 mg/dL Calcium 9.8 8.6-10.4 mg/dL eGFR by Creatinine 54 >59 mL/min/1.73m2 P-Phosphorus Reviewed date:09/25/2024 11:09:50 AM Interpretation:Normal Performing Lab: Notes/Report: Test performed by [facility] [address] [place] [address] , [address], [place] [address] Mateusz Cortes MD, Propeller Layout Worker CLIA: [id number] Phosphorus 3.4 2.5-4.5 mg/dL P-PSA Reviewed date:09/25/2024 11:09:50 AM Interpretation:Normal Performing Lab: Notes/Report: Test performed by [facility] [address] [place] [address] , [address], [place] [address] Mateusz Cortes MD, Propeller Layout Worker CLIA: [id number] PSA 1.57 <4.00 ng/mL Please note this is an ultrasensitive PSA assay with a lower limit of detection of 0.014 ng/mL. This test is performed by the [employer] ECLIA methodology. Values obtained with different assay methods or kits cannot be directly compared. P-Parathyroid Hormone (PTH) Intact Reviewed date:09/25/2024 11:09:50 AM Interpretation:Normal Performing Lab: Notes/Report: Test performed by [facility] [address] , [facility] [place] [address] Mateusz Cortes MD, Propeller Layout Worker CLIA: [id number] Parathyroid Hormone (PTH) Intact 23.8 15.0-65.0 pg/mL P-Vitamin D 25-Hydroxy Reviewed date:09/25/2024 11:09:50 AM Interpretation:Normal Performing Lab: Notes/Report: Test performed by [facility] [address] , [place] [address] Mateusz Cortes MD, Propeller Layout Worker CLIA: [id number] Vitamin D 25-Hydroxy 54.2 30.0-100.0 ng/mL Interpretation of Vitamin D 25 [place]: < 20 ng/mL - Deficiency 20 - 29 ng/mL - Insufficiency 30 - 100 ng/mL - Sufficiency > 100 ng/mL - Super-therapeutic- toxicity may occur above this level. Clinical correlation required. REASON FOR VISIT REFILLS AND BLOOD WORK Medications Medication SIG (Take, Route, Frequency, Duration) Notes Start Date End Date Status Pantoprazole Sodium 40 MG 1 tab(s) orall y once a day; Duration: 90 days Active Fenofibrate 145 MG Take 1 tablet by ning th once daily; Duration: 90 Active Ezetimibe 10 MG Take 1 tablet by ning th once daily; Duration: 90 Active Synthroid 125 MCG 1 tab(s) orally once a day; Duration: 90 days Active Crestor 40 MG 1 tab(s) orally once a day (at bedtime); Duration: 90 days Active oxyBUTYnin Chloride ER 10 MG 1 tablet Orally Once a day; Duration: 90 days Active Farxiga 10 MG 1 tablet Orally Once a day Active Metoprolol Succinate ER 25 MG 1 tab(s) orally once a day A ctive Irbesartan 300 MG 1 tab(s) orally once a day Active amLODIPine Besylate 2.5 MG 1 tab(s) orally once a day Active Aspirin 81 MG 1 tablet Orally Once a day; Duration: 90 days Active Repatha 140 MG/ML 1 mL Subcutaneous Ev ирина 2 weeks Active Tamsulosin HCl 0.4 MG 1 capsule Orally O nce a day; Duration: 30 day(s) Active Problems Problem Type SNOMED Code ICD Code Onset Dates Problem Status W/U Status Risk Notes Problem Obese class II ([id number]) BMI 36.0-36.9,a dult (Z68.36) Active confirmed Vital Signs Weight 265.8 lbs 09/24/2024 Blood pressure systolic 122 mm Hg 09/25/19 25 Blood pressure diastolic 72 mm Hg 025 Heart Rate 71 /min 09/24/2024 Height 72 in 09/24/2024 BMI 36.05 kg/m2 09/24/2024 Encounters Encounter Location Date Provider Diagnosis [facility] [address] [phone] 09/24/2024 Reinaldo Figueroa Primary hypertension I10 ; Stage 3a chronic kidney disease N18.31 ; Vitamin D deficiency E55.9 ; Prostate cancer screening Z12.5 ; Acquired hypothyroidism E03.9 ; Coronary artery disease involving tunica-biloxi coronary artery of tunica-biloxi heart without angina pectoris I25.10 ; Mixed hyperlipidemia E78.2 ; BMI 36.0-36.9,adult Z68.36 and Non morbid obesity E66.9 Assessments Encounter Date Diagnosis (ICD Code) Assessment Notes Treatment Notes Treatment Clinical Notes Section Notes 09/24/2024 Primary hypertension (ICD-10 - I10) 09/24/2024 Stage 3a chronic kidney disease (ICD-10 - N18.31) 09/24/2024 Vitamin D deficiency (ICD-10 - E55.9) 09/24/2024 Prostate cancer screening (ICD-10 - Z12.5) 09/24/2024 Acquired hypothyroidism (ICD-10 - E03.9) 09/24/2024 Coronary artery disease involving tunica-biloxi coronary artery of tunica-biloxi heart without angina pectoris (ICD-10 - I25.10) 09/24/2024 Mixed hyperlipidemia (ICD-10 - E78.2) 09/24/2024 BMI 36.0-36.9,adult (ICD-10 - Z68.36) 09/24/2024 Non morbid obesity (ICD-10 - E66.9) Plan Of Treatment Medication Medication Name Sig Start Date Stop Date Notes Farxiga 10 MG 1 tablet Orally Once a day Metoprolol Succinate ER 25 MG 1 tab(s) orally once a day Irbesartan 300 MG 1 tab(s) orally once a day amLODIPine Besylate 2.5 MG 1 tab(s) orally once a day Next Appt Details Follow Up: via phone to repo rt test results, Reason: Progress Notes * NEWTONCain WINCHESTEROB:1960 (64 yo M)Acc No.[id number]:09/24/2024 Progress Notes Patient: Ge ROBLSE Provider: Grazyna Figueroa M.D. :1960 A ge:64 Y S ex:Male Date:09/24/2024 Address:[address] [place] [address] Subjective: * Chief Complaints: * 1 . REFILLS AND BLOOD WORK. * HPI: C ardiology: 64 year old male presents with c/o Blood Pressure Elevated P t here for check up on hypertension. Pt states he is doing well and does not have any concerns.? c/o Hyperlipidemia P t is fasting today. [...] Diskectomy 09/07/2011, Cholecystectomy , Hernia , Colonoscopy, 2017 , Percutaneous Coronary Intervention 11/2021. * Hospitalization/Major Diagno stic Procedure: D enies Past Hospitalization. * Family History: F ather: [...] affeine: yes, frequency:. Marital Status: . Occupation: [employer]. Past smoking status: yes, Smoking status: Patient [...] tablet Orally Once a day , Taking Farxiga 10 MG Tablet 1 tablet Orally Once a day , Taking Ezetimibe 10 MG Tablet Take 1 tablet by mouth once daily , Taking Metoprolol Succinate ER 25 MG Tablet Extended Release 24 Hour 1 tab(s) orally once a day , Taking Synthroid 125 MCG Tablet 1 tab(s) orally once a day , Taking Crestor 40 MG Tablet 1 tab(s) orally once a day (at bedtime) , Taking Irbesartan 300 MG Tablet 1 tab(s) orally once a day , Taking Pantoprazole Sodium 40 MG Tablet Delayed Release 1 tab(s) orally once a day , Taking Fenofibrate 145 MG Tablet Take 1 tablet by mouth once daily , Taking amLODIPine Besylate 2.5 MG Tablet 1 tab(s) orally once a day , Medication List reviewed and reconciled with the patient * Allergies: N iacin: anaphylaxis. Objective: * Vitals: W t: 265.8, Temp: 98.0, BP: 122/72, HR: 71, Nurse: booker, Ht: 72, BMI:36.05. * Examination: E ndocrinology: General Appearance: N AD. H EENT: u nremarkable.?Heart: R SR. L ungs: c lear to auscultation. E xtremities: n o leg edema.? Assessment: * Assessment: 1. P rimary hypertension - I10 (Primary) 2 . S tage 3a chronic kidney disease - N18.31 3 . V itamin D deficiency - E55.9 4 . P rostate cancer screening - Z12.5 5 . A cquired hypothyroidism - E03.9 6 . C oronary artery disease involving tunica-biloxi coronary artery of tunica-biloxi heart without angina pectoris - I25.10 7 . M ixed hyperlipidemia - E78.2 8 . B [place] 36.0-36.9,adult - Z68.36 9 . N on morbid obesity - E66.9 Plan: * Treatment: 2. S tage 3a chronic kidney disease Continue Farxiga Tablet, 10 MG, 1 tablet, Orally, Once a day. L AB: P-Basic Metabolic Panel (BMP) (Collection Date & Time - 09/24/2024 09:55 AM) b un 26, Cr 1.43, gfr 54 Value Reference Range B UN 26 H 8-23 - mg/dL * C alcium 9.8 8.6-10.4 - mg/dL * C hloride 103 97-108 - mmol/L * C O2 22 20-32 - mmol/L * C reatinine 1.43 H 0.70-1.30 - mg/dL * G lucose 86 65-99 - mg/dL * P otassium 4.6 3.5-5.3 - mmol/L * S odium 138 135-145 - mmol/L * e GFR by Creatinine 54 L >59 - mL/min/1.73m2 * Brittany Montoya 09/25/2024 11:09 :44 AM EDT > See phone encounter ?LAB: P-Phosphorus (Collection Date & Time - 09/24/2024 09:55 AM)?Normal* Value Reference Range P hosphorus 3.4 2.5-4.5 - mg/dL * Brittany Montoya 09/25/2024 11:09 :44 AM EDT > See phone encounter ?LAB: P-Parathyroid Hormone (PTH) Intact (Collection Date & Time - 09/24/2024 09:55 AM)?Normal* Value Reference Range P arathyroid Hormone (PTH) Intact 23.8 15.0-65. 0 - pg/mL * Brittany Montoya 09/25/2024 11:09 :44 AM EDT > See phone encounter 3.?Vitamin D deficiency?LAB: P-Vitamin D 25-Hydroxy (Collection Date & Time - 09/24/2024 09:55 AM)? Normal* Value Reference Range V itamin D 25-Hydroxy 54.2 30.0-100.0 - ng/mL * Brittany Montoya 09/25/2024 11:09 :44 AM EDT > See phone encounter 4.?Prostate cancer screening?LAB: P-PSA (Collection Date & Time - 09/24/2024 09:55 AM)?Normal* Value Reference Range P SA 1.57 <4.00 - ng/mL * Brittany Montoya 09/25/2024 11:09 :44 AM EDT > See phone encounter * Procedure Codes: G 2211 Complex e/m visit add on, G8950 PREHTN/HTN BP DOC INDCD F/U DOC, G8752 MOST RECENT SYSTOLIC BP < 140MM HG, G8754 MOST RECENT DIASTOLIC BP < 90MM HG * Follow Up: v ia phone to report test results * Images: Drawing:[address] [facility] Billing Information: * Visit Code: 95047 Office Visit, Est Pt., Level 4. * Procedure Codes: G2211 Complex e/m visit add on. G8950 PREHTN/HTN BP DOC INDCD F/U DOC. G8752 MOST RECENT SYSTOLIC BP < 140MM HG. G8754 MOST RECENT DIASTOLIC BP < 90MM HG. * Electronic signature of Muriel Figueroa MD on 02/09/2025 at 08:32 AM EST Sign off status: Pending * Provider: Grazyna Figueroa M.D. Date: 0 09/24/2024 Generated for Jaimee cobos/Melissa/Mauro on: 1 04/12/2024 08:32 AM EST History and Physical Notes * HPI (History of Present Illness) Category Sub-Category Detail Notes Category Not es Endocrinology Hypothyroidism Pt here to f/u Cardiology Blood Pressure Elevated Pt here for check up on hypertension. Pt states he is doing well and does not have any concerns Hyperlipidemia Pt is fasting today Examination Category Sub-Category Detail Notes Category Not es Endocrinology HEENT: unremarkable Heart: RSR Lungs: clear to auscultatio n Extremities: no leg edema General Appearance: NAD
--- OUTSIDE RECORDS SUMMARY | 2024-11-06 05:45 | XMS_ITS ---
Author [facility] Address [address] [id number] Care Team Providers Care Orthotist Name Role Phone Reinaldo Figueroa Primary Care Provider [phone] Allergies Allergen (clinical drug ingredient) Drug/Non Drug Allergy documented on EMR Reaction Allergy Type Onset Date Status niacin Niacin anaphylaxis Drug Allergy Activ e REASON FOR VISIT shoulder pain Medications Medication SIG (Take, Route, Frequency, Duration) Notes Start Date End Date Status Dapagliflozin Propanediol 10 MG 1 tablet Orally Once a day; Duration: 90 days 09/28/2024 Active Ezetimibe 10 MG Take 1 tablet by ning once daily for 90 days; Duration: 90 Active dexAMETHasone 4 MG 1 tablet Orally twic e a day; Duration: 5 days 11/06/2024 Active Meloxicam 15 MG 1 tablet Orally ever y other day; Duration: 90 days 10/01/2024 Active amLODIPine Besylate 2.5 MG 1 tab(s) oral ly once a day; Duration: 90 days Active Aspirin 81 MG 1 tablet Orally Once a day; Duration: 90 days Active Fenofibrate 145 MG 1 tablet Orally Once a day; Duration: 90 days Active oxyBUTYnin Chloride ER 10 MG 1 tablet Orally Once a day; Duration: 90 days Active Repatha 140 MG/ML 1 mL Subcutaneous Ev ирина 2 weeks Active Tamsulosin HCl 0.4 MG 1 capsule Orally O nce a day; Duration: 30 day(s) Active Pantoprazole Sodium 40 MG 1 tab(s) orall y once a day; Duration: 90 days Active Crestor 40 MG 1 tab(s) orally once a day (at bedtime); Duration: 90 days Active Metoprolol Succinate ER 25 MG 1 tab(s) orally once a day; Duration: 90 days Active Irbesartan 300 MG 1 tab(s) orally once a day; Duration: 90 days Active Synthroid 125 MCG 1 tab(s) orally once a day; Duration: 90 days Active Vital Signs Weight 264 lbs 11/06/2024 Blood pressure systolic 124 mm Hg 11/07/19 25 Blood pressure diastolic 72 mm Hg 025 Heart Rate 70 /min 11/06/2024 Height 72 in 11/06/2024 BMI 35.8 kg/m2 11/06/2024 Encounters Encounter Location Date Provider Diagnosis [facility] 36 [facility] [address] [place] [phone] 11/06/2024 Reinaldo Figueora Acute pain of right shoulder M25.511 Assessments Encounter Date Diagnosis (ICD Code) Assessment Notes Treatment Notes Treatment Clinical Notes Section Notes 11/06/2024 Acute pain of right shoulder (ICD-10 - M25.511) Rest, ice, call with a progress report next week Plan Of Treatment Medication Medication Name Sig Start Date Stop Date Notes dexAMETHasone 4 MG 1 tablet Orally twic e a day; Duration: 5 days 11/06/2024 Treatment Notes Assessment Notes Acute pain of right shoulder Rest, ice, call with a progress report next week Next Appt Details Follow Up: via phone to repo rt progress, Reason: Progress Notes * Cain NEWTONOB:1960 (64 yo M)Acc No.[id number]:11/06/2024 Progress Notes Patient: Ge ROBLES Provider: Grazyna Figueroa M.D. :1960 A ge:64 Y S ex:Male Date:11/06/2024 Address:[address] [place] [address], [id number] Subjective: * Chief Complaints: * 1 . Shoulder pain. * HPI: S houlder/Upper arm: 64 year old male presents with c/o shoulder pain P t complains of excruciating rt should pain for 2 weeks. Pt states that pain radiated to upper arm. Pt states he was painting with a roller the day pain started but pt does not think that is what is the cause. Pt states that as long as he is not moving his arm the pain is tolerable. * Medical History: H ypercholestrolemia, Hypothyroidism, Esophageal [...] . * Social History: C URRENT TOBACCO USE: Yes S moking Status: Patient does smoke, Former Smoker: Yes, Quit smokin, Smoking pack year history: 1, Second hand smoke exposure: No. C affeine: yes, frequency:. Marital Status: . Occupation: [employer]. Past smoking status: yes, Smoking status: Patient does not smoke. Recreational drug use: no. Alcohol: Yes, Type: [...] tablet Orally Once a day , Taking Dapagliflozin Propanediol 10 MG Tablet 1 tablet Orally Once a day , Taking Ezetimibe 10 MG Tablet Take 1 tablet by mouth once daily for 90 days , Taking Meloxicam 15 MG Tablet 1 tablet Orally every other day , Taking amLODIPine Besylate 2.5 MG [...] , Taking Fenofibrate 145 MG Tablet 1 tablet Orally Once a day , Medication List reviewed and reconciled with the patient * Allergies: N iacin: anaphylaxis. Objective: * Vitals: W t: 264, Temp: 97.9, BP: 124/72, HR: 70, Nurse: booker, Ht: 72, BMI:35.8. * Examination: G eneral Examination: General Appearance: N AD. S houlder / Upper arm: Shoulder: r ight. I nspection: n o swelling or redness. P alpation: t enderness on subdeltoid bursa, tenderness over AC joint. R berry of motion: r estricted rotations and abduction. S trength: d iminished overall due to pain.? Assessment: * Assessment: 1. A cute pain of right shoulder - M25.511 (Primary) Plan: * Treatment: * Procedure Codes: G 2211 Complex e/m visit add on, 1036F TOBACCO NON-USER, G8783 BP SCR PRFRM RCMDD DEFIND SCR INTVL, G8752 MOST RECENT SYSTOLIC BP < 140MM HG, G8754 MOST RECENT DIASTOLIC BP < 90MM HG, 3074F SYST BP LT 130 MM HG, 3078F DIAST BP < 80 MM HG, 3017F COLORECTAL CA SCREEN DOC REV * Preventive Medicine: Screening / Special Tests: C olonoscopy Anshu miller, 06/16/2016 colonoscopy, repeat in 5 - 10 years. * Follow Up: sana ia phone to report progress * Images: Billing Information: * Visit Code: 64320 Office Visit, Est Pt., Level 3. * Procedure Codes: G2211 Complex e/m visit add on. 1036F TOBACCO NON-USER. G8783 BP SCR PRFRM RCMDD DEFIND SCR INTVL. G8752 MOST RECENT SYSTOLIC BP < 140MM HG. G8754 MOST RECENT DIASTOLIC BP < 90MM HG. 3074F SYST BP LT 130 MM HG. 3078F DIAST BP < 80 MM HG. 3017F COLORECTAL CA SCREEN DOC REV. * Electronic signature of Muriel Figueroa MD on 02/09/2025 at 08:32 AM EST Sign off status: Pending * Provider: Grazyna Figueroa M.D. Date: 0 11/06/2024 Generated for Jaimee cobos/Melissa/Jetitting on: 1 04/12/2024 08:32 AM EST History and Physical Notes * HPI (History of Present Illness) Category Sub-Category Detail Notes Category Not es Shoulder/Upper arm shoulder pain Pt complains of excruciating rt should pain for 2 weeks. Pt states that pain radiated to upper arm. Pt states he was painting with a roller the day pain started but pt does not think that is what is the cause. Pt states that as long as he is not moving his arm the pain is tolerable Examination Category Sub-Category Detail Notes Category Not es General Examination General Appearance: NAD Shoulder / Upper arm Range of motion: restricted rotations and abduction Strength: diminished overall d ue to pain Shoulder: right Inspection: no swelling or redne ss Palpation: tenderness on subdel toid bursa, tenderness over AC joint
--- OUTSIDE RECORDS SUMMARY | 2024-12-14 09:15 | XMS_ITS | Encounter Summary ---
Author Organization [facility] Address [address] [place] [address] Care Team Providers Care Marketing Education Teacher Name Role Phone Reinaldo Figueroa MD Primary Care Provider + [phone] Reason for Visit * Reason Comments Coronary Artery Disease Coronary artery disease involving coronary bypass graft of nooksack heart without angina pectoris Encounter Details Date Type Department Care Team (Late st Contact Info) Description 12/14/2024 10:15 AM EDT Office Visit [facility] [address] [place] [address] Per Sanchez III, MD [address] [place] [address] Coronary artery disease involving coronary bypass graft of nooksack heart without angina pectoris (Primary Dx); Mixed hyperlipidemia; Primary hypertension Social History Tobacco Use Types Packs/Day Years Used Date Smoking Tobacco: Former Cigarettes 1 45 0 08/18/1974 - 02/18/2017 Smokeless Tobacco: Never Tobacco Cessation:Counseling Given: Not Answered Alcohol Use Standard Drinks/Week Comments Yes 8 (1 standard drink = 0.6 oz pur e alcohol) 2 scots everyday AUDIT-C Answer Date Recorded Q1: How often do you have a drink containing alcohol? 4 or more times a week 12/08/2021 Q2: How many drinks containi ng alcohol do you have on a typical day when you are drinking? 3 or 4 Q3: How often do you have si x or more drinks on one occasion? Less than monthly 12/08/2021 Abuse Screen Answer Date Recorded Feels Unsafe at Home or Work/School no 12/08/2021 Feels Threatened by Someone no 11/19 Does Anyone Try to Keep You From Having Contact with Others or Doing Things Outside Your Home? no 12/08/2021 Physical Signs of Abuse Present no 12/08/2021 Housing Stability Answer Date Recorded Current Living Arrangements home 11/19 Potentially Unsafe Housing Conditions Not on jr e 12/08/2021 Disabilities Answer Date Recorded Difficulty Concentrating, Remembering or Making Decisions no 12/08/2021 Difficulty Managing Errands Independently no 12/08/2021 Sex and Gender Information Value Date Recorded Sex Assigned at Male 11/09/2024 4:04 PM EDT Legal Sex Male 1:24 PM EDT Gender Identity Not on file Sexual Orientation Straight 11/09/2024 4: 04 PM EDT documented as of this encounter Last Filed Vital Signs Vital Sign Reading Time Taken Comments Blood Pressure 130/78 12/14/2024 9:56 AM EDT Pulse 82 12/14/2024 9:56 AM EDT Temperature - - Respiratory Rate - - Oxygen Saturation 96% 12/14/2024 9:56 AM EDT Inhaled Oxygen Concentration - - Weight 119 kg (262 lb 9.6 oz) 12/14/2024 9:56 AM EDT Height 182.9 cm (6') 12/14/2024 9:56 AM EDT Body Mass Index 35.61 12/14/2024 9:56 AM EDT documented in this encounter Progress Notes * Per Sanchze III, MD - 12/14/2024 10:15 AM EDTAssociated Order(s): ECG 12 Lead Post-Procedure Diagnose(s): Coronary artery disease involving coronary bypass graft of nooksack heartwithout angina pectoris [facility] Cardiology Office visit Ge Keita Aman 1960 There is no work phone number on file. VISIT DATE: 12/14/2024 PCP: Reinaldo Figueroa MD [address] [place] [address] CC: Chief Complaint Patient presents with Coronary Artery Disease Coronary artery disease involving coronary bypass graft of nooksack heart without angina pectoris Previous cardiac studies and procedures: September 2021 coronary calcium score: 3876, 97 percentile. November 2021 exercise myocardial perfusion imaging The patient reported chest tightness at peak exercise which resolved in recovery. Expected exercise time 8;40 Actual time 5:58. Patient requested to stop d/t fatigue and chest tightness. Left ventricular ejection fraction is normal. (Calculated EF = 66%). A horizontal ST segment depression of 2 mm was noted during stress in the II, III, aVF, V6, V5, V4 and V3 leads, beginning at 4 minutes of stress, and returning to baseline after 5-9 minutes of recovery. Moderate region of moderately severe anterior septal, anterior and apical ischemia. High risk for ischemic heart disease. Cardiac catheterization Focal 90 to 95%, heavily calcified mid LAD stenosis treated with 3.0 x 18 mm TONA Proximal left circumflex chronic total occlusion Otherwise diffuse mild to moderate nonobstructive disease. ASSESSMENT: Diagnosis Plan 1. Coronary artery disease involving coronary bypass graft of nooksack heart without angina pectoris 2. Mixed hyperlipidemia 3. Primary hypertension PLAN: Coronary artery disease: Currently asymptomatic. Continue low-dose aspirin. Continue high intensitystatin therapy and afterload reduction. Heart healthy, plant-based diet. Hyperlipidemia: Goal LDL less than 70. Continue combination of Zetia, fenofibrate and rosuvastatin and PCSK9 inhibitor. Hypertension: Goal less than 130/80 mmHg. Associated stage III CKD. Currently well controlled. Continue current medical therapy. Subjective Denies chest discomfort. No limiting dyspnea on exertion or palpitations. Blood pressures running less than 130/80 mmHg. PHYSICAL EXAMINATION: Vitals: 12/14/24 0956 BP: 130/78 BP Location: Right arm Patient Position: Sitting Cuff Size: Adult Pulse: 82 SpO2: 96% Weight: 119 kg (262 lb 9.6 oz) Height: 182.9 cm (72 ) General Appearance: Alert, cooperative, no distress, appears stated age Lungs: Clear to auscultation bilaterally, respirations unlabored Chest Wall: No tenderness or deformity Heart: Regular rate and rhythm, S1 and S2 normal, no murmur, rub or gallop, normal carotid impulse bilaterally without bruit. Extremities: Extremities normal, atraumatic, no cyanosis or edema Pulses: 2+ and symmetric all extremities Skin: Skin color, texture, turgor normal, no rashes or lesions Diagnostic Data: ECG 12 Lead Date/Time: 12/14/2024 10:17 AM Performed by: Per Sanchez III, MD Authorized by: Per Sanchez III, MD Comparison: compared with previous ECG from 12/08/2021 Similar to previous ECG Rhythm: sinus rhythm Clinical impression: normal ECG Lab Results Component Value Date TRIG 94 12/08/2021 HDL 39 (L) 12/08/2021 Lab Results Component Value Date GLUCOSE 102 (H) 12/08/2021 BUN 19 12/08/2021 CREATININE 1.30 (H) 12/08/2021 NA 140 12/08/2021 K 4.6 12/08/2021 CL 104 12/08/2021 CO2 24.0 12/08/2021 Lab Results Component Value Date HGBA1C 5.90 (H) 12/08/2021 Lab Results Component Value Date WBC 6.49 12/08/2021 HGB 13.1 12/08/2021 HCT 40.3 12/08/2021 PLT 249 12/08/2021 Allergies Allergies Allergen Reactions Niacin Itching and Swelling Current Medications Current Outpatient Medications: amLODIPine (NORVASC) 2.5 MG tablet, Take 1 tablet by mouth Daily., Disp: 90 tablet, Rfl: 3 aspirin 81 MG EC tablet, Take 1 tablet by mouth Daily., Disp: 90 tablet, Rfl: 3 cholecalciferol (VITAMIN D3) 25 MCG (1000 UT) tablet, Take 1 tablet by mouth Daily., Disp: , Rfl: Evolocumab (Repatha SureClick) solution auto-injector SureClick injection, Inject 1 mL under the skin into the appropriate area as directed Every 14 (Fourteen) Days., Disp: 6 mL, Rfl: 4 ezetimibe (ZETIA) 10 MG tablet, Take 1 tablet by mouth Daily., Disp: , Rfl: Farxiga 10 MG tablet, Take 20 mg by mouth Daily., Disp: , Rfl: fenofibrate (TRICOR) 145 MG tablet, Take 1 tablet by mouth Daily., Disp: , Rfl: irbesartan (AVAPRO) 300 MG tablet, Take 1 tablet by mouth Daily., Disp: , Rfl: levothyroxine (SYNTHROID, LEVOTHROID) 125 MCG tablet, Take 1 tablet by mouth Daily., Disp: , Rfl: meloxicam (MOBIC) 15 MG tablet, Take 1 tablet by mouth Daily. (Patient taking differently: Take 1 tablet by mouth Every Other Day.), Disp: , Rfl: metoprolol succinate XL (TOPROL-XL) 25 MG 24 hr tablet, Take 1 tablet by mouth Daily. Need lab workfor further refills., Disp: 90 tablet, Rfl: 3 pantoprazole (PROTONIX) 40 MG EC tablet, Take 1 tablet by mouth Daily., Disp: , Rfl: rosuvastatin (CRESTOR) 40 MG tablet, Take 1 tablet by mouth every night at bedtime. Need lab work for further refills., Disp: 90 tablet, Rfl: 3 ROS ROS SOCIAL HX Social History Socioeconomic History Marital status: Tobacco Use Smoking status: Former Current packs/day: 0.00 Average packs/day: 1 pack/day for 45.0 years (45.0 ttl pk-yrs) Types: Cigarettes Start date: 08/18/1974 Quit date: 02/18/2017 Years since quittin.8 Smokeless tobacco: Never Vaping Use Vaping status: Former Quit date: 02/17/2022 Substances: Nicotine Substance and Sexual Activity Alcohol use: Yes Alcohol/week: 8.0 standard drinks of alcohol Types: 8 Glasses of wine per week Comment: 2 scots everyday Drug use: Never Sexual activity: Not Currently Partners: Female Comment: Need ti discuss possibility of taking meds for prostate FAMILY HX Family History Problem Relation Name Age of Onset Heart attack Mother Maykel Newton COPD Mother Maykel Newton Heart failure Mother Maykel Newton Heart disease Mother Maykel Newton Cause of was heart attack Heart disease Father Damion Newton Hyperlipidemia Father Damion Newton Heart attack Father Damion Newton Heart failure Father Damion Newton I confirm that all copied/forwarded documentation in this record has been carefully reviewed, updated as necessary, and accurately reflects the patient's current status and plan of care. Per Sanchez III, MD, [facility] documented in this encounter Plan of Treatment Upcoming Encounters Date Type Department Care Team (Late st Contact Info) Description 12/14/2025 11:15 AM EDT Office Visit [facility] [address] [place] [address] Per Sanchez III, MD [address] [place] [address] documented as of this encounter Procedures Procedure Name Priority Date/Time Associated Diagnosis Comments ECG 12-LEAD Routine 12/14/2024 Coronary artery disease involving coronary bypass graft of nooksack heart without angina pectoris documented in this encounter Results * ECG 12-LEAD (12/14/2024) Narrative 12/14/2024 Per Sanchez III, MD 12/14/2024 10:19 AM ECG 12 Lead Date/Time: 12/14/2024 10:17 AM Performed by: Per Sanchez III, MD Authorized by: Per Sanchez III, MD Comparison: compared with previous ECG from 12/08/2021 Similar to previous ECG Rhythm: sinus rhythm Clinical impression: normal ECG Procedure Note Per Sanchez III, MD - 12/14/2024 10:15 AM EDT [facility] Cardiology Office visit Ge Newton 1960 There is no work phone number on file. VISIT DATE: 12/14/2024 PCP: Reinaldo Figueroa MD [address] [place] [address] [place] [address] CC: Chief Complaint Patient presents with Coronary Artery Disease Coronary artery disease involving coronary bypass graft of nooksack heartwithout angina pectoris Previous cardiac studies and procedures: September 2021 coronary calcium score: 3876, 97 percentile. November 2021 exercise myocardial perfusion imaging The patient reported chest tightness at peak exercise which resolved inrecovery. Expected exercise time 8;40 Actual time 5:58. Patient requested to stopd/t fatigue and chest tightness. Left ventricular ejection fraction is normal. (Calculated EF = 66%). A horizontal ST segment depression of 2 mm was noted during stress inthe II, III, aVF, V6, V5, V4 and V3 leads, beginning at 4 minutes ofstress, and returning to baseline after 5-9 minutes of recovery. Moderate region of moderately severe anterior septal, anterior andapical ischemia. High risk for ischemic heart disease. Cardiac catheterization Focal 90 to 95%, heavily calcified mid LAD stenosis treated with 3.0 x 18mm TONA Proximal left circumflex chronic total occlusion Otherwise diffuse mild to moderate nonobstructive disease. ASSESSMENT: Diagnosis Plan 1. Coronary artery disease involving coronary bypass graft of nooksack heartwithout angina pectoris 2. Mixed hyperlipidemia 3. Primary hypertension PLAN: Coronary artery disease: Currently asymptomatic. Continue low-doseaspirin. Continue high intensity statin therapy and afterload reduction.Heart healthy, plant-based diet. Hyperlipidemia: Goal LDL less than 70. Continue combination of Zetia,fenofibrate and rosuvastatin and PCSK9 inhibitor. Hypertension: Goal less than 130/80 mmHg. Associated stage III CKD.Currently well controlled. Continue current medical therapy. Subjective Denies chest discomfort. No limiting dyspnea on exertion or palpitations.Blood pressures running less than 130/80 mmHg. PHYSICAL EXAMINATION: Vitals: 12/14/24 0956 BP: 130/78 BP Location: Right arm Patient Position: Sitting Cuff Size: Adult Pulse: 82 SpO2: 96% Weight: 119 kg (262 lb 9.6 oz) Height: 182.9 cm (72 ) General Appearance: Alert, cooperative, no distress, appears stated age Lungs: Clear to auscultation bilaterally, respirations unlabored Chest Wall: No tenderness or deformity Heart: Regular rate and rhythm, S1 and S2 normal, no murmur, rub orgallop, normal carotid impulse bilaterally without bruit. Extremities: Extremities normal, atraumatic, no cyanosis or edema Pulses: 2+ and symmetric all extremities Skin: Skin color, texture, turgor normal, no rashes or lesions Diagnostic Data: ECG 12 Lead Date/Time: 12/14/2024 10:17 AM Performed by: Per Sanchez III, MD Authorized by: Per Sanchez III, MD Comparison: compared with previousECG from 12/08/2021 Similar to previous ECG Rhythm: sinus rhythm Clinical impression: normal ECG Lab Results Component Value Date TRIG 94 12/08/2021 HDL 39 (L) 12/08/2021 Lab Results Component Value Date GLUCOSE 102 (H) 12/08/2021 BUN 19 12/08/2021 CREATININE 1.30 (H) 12/08/2021 NA 140 12/08/2021 K 4.6 12/08/2021 CL 104 12/08/2021 CO2 24.0 12/08/2021 Lab Results Component Value Date HGBA1C 5.90 (H) 12/08/2021 Lab Results Component Value Date WBC 6.49 12/08/2021 HGB 13.1 12/08/2021 HCT 40.3 12/08/2021 PLT 249 12/08/2021 Allergies Allergies Allergen Reactions Niacin Itching and Swelling Current Medications Current Outpatient Medications: amLODIPine (NORVASC) 2.5 MG tablet, Take 1 tablet by mouth Daily., Disp:90 tablet, Rfl: 3 aspirin 81 MG EC tablet, Take 1 tablet by mouth Daily., Disp: 90 tablet,Rfl: 3 cholecalciferol (VITAMIN D3) 25 MCG (1000 UT) tablet, Take 1 tablet bymouth Daily., Disp: , Rfl: Evolocumab (Repatha SureClick) solution auto-injector SureClickinjection, Inject 1 mL under the skin into the appropriate area asdirected Every 14 (Fourteen) Days., Disp: 6 mL, Rfl: 4 ezetimibe (ZETIA) 10 MG tablet, Take 1 tablet by mouth Daily., Disp: ,Rfl: Farxiga 10 MG tablet, Take 20 mg by mouth Daily., Disp: , Rfl: fenofibrate (TRICOR) 145 MG tablet, Take 1 tablet by mouth Daily., Disp:, Rfl: irbesartan (AVAPRO) 300 MG tablet, Take 1 tablet by mouth Daily., Disp:, Rfl: levothyroxine (SYNTHROID, LEVOTHROID) 125 MCG tablet, Take 1 tablet bymouth Daily., Disp: , Rfl: meloxicam (MOBIC) 15 MG tablet, Take 1 tablet by mouth Daily. (Patienttaking differently: Take 1 tablet by mouth Every Other Day.), Disp: , Rfl: metoprolol succinate XL (TOPROL-XL) 25 MG 24 hr tablet, Take 1 tablet bymouth Daily. Need lab work for further refills., Disp: 90 tablet, Rfl: 3 pantoprazole (PROTONIX) 40 MG EC tablet, Take 1 tablet by mouth Daily.,Disp: , Rfl: rosuvastatin (CRESTOR) 40 MG tablet, Take 1 tablet by mouth every nightat bedtime. Need lab work for further refills., Disp: 90 tablet, Rfl: 3 ROS ROS SOCIAL HX Social History Socioeconomic History Marital status: Tobacco Use Smoking status: Former Current packs/day: 0.00 Average packs/day: 1 pack/day for 45.0 years (45.0 ttl pk-yrs) Types: Cigarettes Start date: 08/18/1974 Quit date: 02/18/2017 Years since quittin.8 Smokeless tobacco: Never Vaping Use Vaping status: Former Quit date: 02/17/2022 Substances: Nicotine Substance and Sexual Activity Alcohol use: Yes Alcohol/week: 8.0 standard drinks of alcohol Types: 8 Glasses of wine per week Comment: 2 scots everyday Drug use: Never Sexual activity: Not Currently Partners: Female Comment: Need ti discuss possibility of taking meds for prostate FAMILY HX Family History Problem Relation Name Age of Onset Heart attack Mother Maykel Newton COPD Mother Maykel Newton Heart failure Mother Maykel Newton Heart disease Mother Maykel Newton Cause of was heart attack Heart disease Father Damion Newton Hyperlipidemia Father Damion Newton Heart attack Father Damion Newton Heart failure Father Damion Newton I confirm that all copied/forwarded documentation in this record has beencarefully reviewed, updated as necessary, and accurately reflects thepatient's current status and plan of care. Per Sanchez III, MD, [facility] Per Sanchez III, MD ECG ORDERABLES Final Resul t documented in this encounter Visit Diagnoses Diagnosis Coronary artery disease involving coronary bypass graft of nooksack heart without angina pectoris- Primary Mixed hyperlipidemia Primary hypertension Unspecified essential hypertension documented in this encounter Care Teams Marketing Education Teacher Relationship Specialty Start Date End Date Reinaldo Figueroa MD [address] [place] [address] PCP - General Family Medicine 10/31/21 documented as of this encounter
--- OUTSIDE RECORDS SUMMARY | 2024-12-17 09:46 | XMS_ITS | Encounter Summary ---
Author Organization Healthcare Address [address] [place] [address] Care Team Providers Care Roll Finisher Name Role Phone Reinaldo Figueroa MD Primary Care Provider + [phone] Encounter Details Date Type Department Care Team (Latest Contact Info) Description 12/17/2024 10:46 AM EDT - 12/17/2024 11:59 PM EDT Hospital Encounter [facility] [address] [place] [id number] Acute pain of right shoulder Discharge Disposition: Home or Self Care Social History Tobacco Use Types Packs/Day Years Used Date Smoking Tobacco: Former Passive Smoke Exposure: Past Smokeless Tobacco: Never Alcohol Use Standard Drinks/Week Comments Yes 0 (1 standard drink = 0.6 oz pure alcohol) Alcoholic Drinks/day: Social alcohol use PHQ-2 Answer Date Recorded Patient Health Questionnaire-2 Score 0 12/17/2024 Sex and Gender Information Value Date Recorded Sex Assigned at Male 12/18/2024 8:11 AM EDT Legal Sex Male 7:37 PM EDT Gender Identity Male 12/18/2024 8:11 AM EDT Sexual Orientation Not on file documented as of this encounter Functional Status * Over the past 2 weeks, how often have you been bothered by any of the following problems? Question Answer Date of Assessment Author Little interest or pleasure in doing things Not at all 12/17/2024 10:42 AM EDT Olga Soto Feeling down, depressed, or hopeless Not at all 12/17/2024 10:42 AM EDT Olga Soto Patient Health Questionnaire -2 Score 0 12/17/2024 10:42 AM EDT ColleenjustenMaría adamesa Rolando documented as of this encounter Medications at Time of Discharge amLODIPine (Norvasc) 2.5 MG tablet Take 1 tablet by mouth daily. 12/14/2024 aspirin 81 MG EC tablet Take 1 tablet by mouth daily. dapagliflozin (Farxiga) 10 MG tablet Take 1 tablet by mouth daily. 09/28/2024 dexamethasone (Decadron) 4 MG tablet Take 1 tablet by mouth 2 times a day. esomeprazole (NexIUM) [address] capsule 10/22/2013 Evolocumab (Repatha) 140 MG/ML solution prefilled syringe 1 mL Subcutaneous Every 2 weeks fenofibrate (Tricor) 145 MG tablet Take 1 tablet by mouth daily. finasteride (Proscar) 5 MG tablet Take 1 tablet by mouth daily. 12/29/2023 levothyroxine (Synthroid, Levoxyl) 125 MCG tablet Take 1 tablet by mouth. meloxicam (Mobic) 15 MG tablet Take 1 tablet by mouth. metoprolol succinate XL (Toprol-XL) 25 MG 24 hr tablet Take 1 tablet by mouth daily. 12/14/2024 rosuvastatin (Crestor) 40 MG tablet Take 1 tablet by mouth daily. 12/14/2024 tamsulosin (Flomax) 0.4 MG 24 hr capsule Take 1 capsule by mouth daily. 09/27/2024 traMADol (Ultram) 50 MG tablet Take 1 tablet by mouth every 8 hours as needed. oxybutynin XL (Ditropan-XL) 10 MG 24 hr tablet Take 1 tablet by mouth. 10/01/2024 5 documented as of this encounter Plan of Treatment Upcoming Encounters Date Type Department Care Team (Late st Contact Info) Description 03/22/2025 10:40 AM EST Procedure Visit [facility] [address], [address] [place] [address] Mercedes William, RESPIRATORY THERAPY DIRECTOR [address] [place] [address] documented as of this encounter Procedures Procedure Name Priority Date/Time Associated Diagnosis Comments XR SHOULDER RIGHT 2+ VIEWS Routine 12/17/2024 10:57 AM EDT Acute pain of right shoulder documented in this encounter Results * XR Shoulder Right 2+ Views (12/17/2024 10:57 AM EDT) Anatomical Region Laterality Modality Upper Extremities, Shoulder Right Digi ulysses Radiography Impressions 12/17/2024 11:08 AM EDT No acute osseous finding. Moderate glenohumeral and AC joint osteoarthrosis. CRITICAL RESULT: No. COMMUNICATION: Per this written report. Drafted by Joanne Osborne MD on 12/17/2024 11:07 AM Final report signed by Joanne Osborne MD on 12/17/2024 11:08 AM Narrative 12/17/2024 11:08 AM EDT CLINICAL INDICATION: pain TECHNIQUE: XR SHOULDER RIGHT 2+ VIEWS COMPARISON: Outside MR from 10/21/2024 FINDINGS: No acute fracture or dislocation. Moderate glenohumeral narrowing more inferiorly with inferior osteophytes. The AC joint is intact with moderate degenerative changes. No acute finding in the partially imaged chest. No significant soft tissue swelling. Procedure Note Joanne Osborne MD - 12/17/2024 CLINICAL INDICATION: pain TECHNIQUE: XR SHOULDER RIGHT 2+ VIEWS COMPARISON: Outside MR from 10/21/2024 FINDINGS: No acute fracture or dislocation. Moderate glenohumeral narrowing moreinferiorly with inferior osteophytes. The AC joint is intact with moderatedegenerative changes. No acute finding in the partially imaged chest. Nosignificant soft tissue swelling. IMPRESSION: No acute osseous finding. Moderate glenohumeral and AC jointosteoarthrosis. CRITICAL RESULT: No. COMMUNICATION: Per this written report. Drafted by Joanne Osborne MD on 12/17/2024 11:07 AM Final report signed by Joanne Osborne MD on 12/17/2024 11:08 AM Salazar Gardner MD IMG XR PROCEDURES Final Result documented in this encounter Visit Diagnoses Diagnosis Acute pain of right shoulder documented in this encounter Additional Health Concerns Assessment Noted Time A fall risk assessment has been complete d for the patient 12/17/2024 10:33 AM EDT A Body Mass Index follow-up plan has been documented for the patient 12/17/2024 12:07 PM EDT documented as of this encounter Care Teams Roll Finisher Relationship Specialty Start Date End Date Reinaldo Figueroa MD [id number] [place] [address] PCP - General 07/01/20 documented as of this encounter
--- OUTSIDE RECORDS SUMMARY | 2024-12-17 09:50 | XMS_ITS | Encounter Summary ---
Author Organization [facility] Address [address] [place] [address] Care Team Providers Care Prescriptionist Name Role Phone Reinaldo Figueroa MD Primary Care Provider [phone] Reason for Referral * Other Medical (Routine) - Closed Specialty Diagnoses / Procedures Referred By Mary Jane adames Referred To Contact Sports Medicine Diagnoses Glenohumeral arthritis, right Procedures Sports Medicine - USG Injection, Large Joint Mercedes William APRN [address] [facility] [address] [place] [address] Phone: tel: fax: [facility] Orthopaedic Surgery & Sports Medicine [address] [facility], [address] [place] [address] Phone: tel: fax: Referral ID Status Reason Start Date Expiration Date Visits Re quested Visits Authorized [id number] Closed 12/17/2024 06/18/2026 1 1 Reason for Visit * Reason Comments Pain * Consultation (Routine) - Closed Specialty Diagnoses / Procedures Referred By Mary Jane adames Referred To Contact Sports Medicine Diagnoses Pain in right shoulder Biceps tendon tear Unspecified rotator cuff tear or rupture of right shoulder, not specified as traumatic Reinaldo Figueroa MD [address] [place] [address] Phone: tel: fax: Salazar Gardner MD [address] [place] [address] Phone: tel: fax: Referral ID Status Reason Start Date Expiration Date V isits Requested Visits Authorized [id number] Closed Specialty Services Required 12/09/2024 06/10/2026 1 1 Encounter Details Date Type Department Care Team (Late st Contact Info) Description 12/17/2024 10:50 AM EDT Office Visit [facility] Orthopaedic Surgery & Sports Medicine [address] [place] [address] Salazar Gardner MD [address] [facility] [address] [place] [address] Glenohumeral arthritis, right (Primary Dx); Chronic right shoulder pain Social History Tobacco Use Types Packs/Day Years Used Date Smoking Tobacco: Former Passive Smoke Exposure: Past Smokeless Tobacco: Never Tobacco Cessation:Counseling Given: Not Answered Alcohol Use Standard Drinks/Week Comments Yes 0 [...] on file documented as of this encounter Last Filed Vital Signs Vital Sign Reading Time Taken Comments Blood Pressure 120/71 12/17/2024 10:31 AM EDT Pulse 81 12/17/2024 10:31 AM EDT Temperature - - Respiratory Rate - - Oxygen Saturation 98% 12/17/2024 10:31 AM EDT Inhaled Oxygen Concentration - - Weight 118 kg (260 lb) 12/17/2024 10:31 AM EDT Height 182.9 cm (6') 12/17/2024 10:31 AM EDT Body Mass Index 35.26 12/17/2024 10:31 AM EDT documented in this encounter Functional Status * Over the [...] -2 Score 0 12/17/2024 10:42 AM EDT Olga Soto documented as of this encounter Miscellaneous Notes * Progress Notes - Salazar Gardner MD - 12/17/2024 10:50 AM EDT History of present illness: Ge Newton is a 64 y.o. male who presents today as a new patient forevaluation of right shoulder pain. Patient states he was recently painting a piece of furniture when he noted right shoulder pain shortly after he was complete. Describes severe pain and was seen by his primary care provider who prescribed oral steroids. He notes no significant relief and was ultimately sent for an MRI which he brings with him today for review. Today he presents primarily with anterior lateral right shoulder pain. It is worse with any out reached or overhead activity. Does have some pain that extends up into the neck and down towards the elbow however his primary symptoms remain located at the shoulder. Denies any known injury. Of note has been seen in 2011 for left shoulder pain and was diagnosed with osteoarthritis. Previously discussed total shoulder arthroplasty however he wished to continue conservative treatment. I have reviewed and updated the patient's past medical history, past surgical history, social history, and family history. This is located both in the patient's note and their intake form that has been scanned into the medical record for today's visit. 14 point review of systems was reviewed per signed intake sheet and is otherwise negative except asnoted above. Objective: Constitutional: Well developed, well nourished, no acute distress HEENT: mucous membranes moist, normocephalic atraumatic Psychologic: appropriate mood and affect Chest: bilateral chest elevations, symmetric Cardiovascular: pink extremities, peripheral perfusion intact Respiratory: no respiratory distress, nonlabored on room air Abdomen: soft, nontender Neurologic: orientation to person, place and time Right SHOULDER EXAM There is no cervical tenderness and negative Spurling's. No obvious atrophy or deformity. No scapular dyskinesia. Patient has tenderness about the anterolateral shoulder. Active elevation is 150??, external rotation at the side 60??, internal rotation to T10. There is full passive range of motion. There is pain with elevation and resisted strength testing. There is pain with resisted external rotation. There is mild weakness to supraspinatus testing, no obvious weakness to external rotation. Lift-off test is normal. The patient has a painful arc of abduction and positive impingement signs. There is a negative speed's test and negative Yergason's test. There is no significant pain with cross-arm adduction. No signs of instability or apprehension. Distal neurovascular exam is normal. The patient has a warm and well-perfused upper extremity with capillary refill less than 2 seconds.Sensation is intact to light touch in terminal nerve distributions. The patient has no palpable epitrochlear lymphadenopathy. Imaging: X-Rays: Personally reviewed radiographs of the right shoulder obtained today three views which demonstratesmoderate glenohumeral osteoarthritis with osteophyte at the inferior humeral head. No evidence of acute fracture or dislocation. MRI: Personally reviewed of the right shoulder from an outside facility independently reviewed which demonstrates an intact rotator cuff in its entirety with no evidence of high-grade partial or full-thickness rotator cuff tear. Proximal biceps tendon is absent secondary to known tear. Moderate glenohumeral osteoarthritis mild joint fluid and cystic changes. Assessment/Plan Ge Newton is a 64-year-old male seen today with acute exacerbation of right shoulder pain secondary to glenohumeral osteoarthritis. We reviewed his radiographs and MRI. He does have a proximal biceps tendon rupture which is chronic and no longer causing pain. We discussed his glenohumeral osteoarthritis and recommended conservative treatment to include an ultrasound-guided glenohumeral joint injection. Patient is agreeable to proceeding with the injection. We will have this scheduled to be performed with our primary care sports medicine obtained today. Will scheduled him for follow-up in 3 month for repeat evaluation. documented in this encounter Plan of Treatment Upcoming Encounters Date Type Department Care Team (Late st Contact Info) Description 03/22/2025 10:40 AM EST Procedure Visit [facility] Orthopaedic Surgery & Sports Medicine [address] [facility], [address] [place] [id number] Mercedes William, STEM MOUNTER [address] [facility] [address] [place] [address] documented as of this encounter Results * WA ARTHROCENTESIS ASPIR&/INJ MAJOR JT/BURSA W/US (12/17/2024 11:20 AM EDT) Narrative ThomasKathe rachel, DO - 12/17/2024 11:20 AM EDT ThomasKathe adames, DO 12/17/2024 12:07 PM Sports Medicine - USG Injection, Large Joint: R glenohumeral Indications: pain Details: 25 G needle, ultrasound-guided posterior approach Medications: 50 mg lidocaine 1 %; 2 mL ropivacaine 5 MG/ML; 40 mg Kenalog-40 40 MG/ML Outcome: tolerated well, no immediate complications US Guided Procedure Note: Indication: Osteoarthritis Procedure: Sonographically guided right glenohumeral joint corticosteroid injection Informed Consent: Following denial of allergy and review of potential side effects and complications including, but not limited to, infection, allergic reaction, local tissue breakdown, systemic effects of corticosteroids, elevation of blood glucose, injury to soft tissue and/or nerves and seizure, the patient indicated understanding and agreed to proceed. Procedural pause conducted to verify: correct patient identity, procedure to be performed and, as applicable, correct side and site, correct patient position, availability of any special equipment or other special requirements. Justification for use of ultrasound guidance: The use of direct sonographic visualization of the needle (rather than a non-guided injection) was required to ensure accurate injection placement for diagnostic specificity, to maximize clinical efficacy and for safety purposes to minimize risk of bleeding or injury to nearby neurovascular structures. Technique: The procedure was carried out under sterile technique utilizing a sterile ultrasound transducer cover and sterile ultrasound gel. Pre-procedural scanning was performed to determine optimal needle approach for the procedure. The patient was prepped and draped in the usual sterile fashion. Patient position: lateral decubitus Approach: in plane Local anesthesia: 5 mL 1% Lidocaine Aspiration/Injection: Live sonographic guidance with a 5-1 mHz curvilinear array transducer was used throughout the procedure. A 25g 2 inch needle was used for local anesthesia and was guided into the glenohumeral joint. With the needle in place, syringes were exchanged. After reconfirmation of needle placement, a mixture of 1cc 0.5% Ropivicaine and 1cc 40mg/mL Kenalog was injected into the glenohumeral joint. Post-Procedure Instructions: The patient tolerated the procedure well without complication and was discharged in good condition after a short observation period. The patient was instructed to avoid submerging the procedure site in water for 48-72 hours. The patient was instructed to contact me with any questions pertaining to the procedure and to inform me of the results of the procedure in approximately 7-10 days, as needed. Questions regarding general management should be directed to the patient's referring provider and the patient should keep all previously scheduled follow up appointments. Multiple jalloh images were saved. Impression: Successful sonographically-guided right glenohumeral joint corticosteroid injection. Procedure, treatment alternatives, risks and benefits explained, specific risks discussed. Consent was given by the patient. Immediately prior to procedure a time out was called to verify the correct patient, procedure, equipment, it support specialist and site/side marked as required. Patient was prepped and draped in the usual sterile fashion. us Mercedes William APRN IN CLINIC/BEDSIDE ORDERA NIURKA Edited Result - Final * XR Shoulder Right 2+ Views (12/17/2024 [...] documented in this encounter Visit Diagnoses Diagnosis Glenohumeral arthritis, right- Primary Chronic right shoulder pain Pain in joint, shoulder region Acute pain of right shoulder Glenohumeral arthritis, right- Primary Acute pain of right shoulder documented in this encounter Additional Health Concerns Assessment Noted Time A fall risk assessment has been complete d for the patient 12/17/2024 10:33 AM EDT A Body Mass Index follow-up plan has been documented for the patient 12/17/2024 12:07 PM EDT documented as of this encounter Care Teams Prescriptionist Relationship Specialty Start Date End Date Reinaldo Figueroa MD [address] [place] [address] PCP - General 07/01/20 documented as of this encounter
--- OUTSIDE RECORDS SUMMARY | 2024-12-17 10:20 | XMS_ITS | Encounter Summary ---
Author Organization [facility] Address [address] [place] [address] Care Team Providers Care Automotive Mechanical Engineer Name Role Phone Reinaldo Figueroa MD Primary Care Provider [phone] Reason for Visit * Other Medical (Routine) - Closed Specialty Diagnoses / Procedures Referred By Mary Jane adames Referred To Contact Sports Medicine Diagnoses Glenohumeral arthritis, right Procedures Sports Medicine - USG Injection, Large Joint Mercedes William, PROFESSIONAL BONDSMAN [address] [facility] [address] [place] [address] Phone: tel: fax: [facility] Orthopaedic Surgery & Sports Medicine [address] [facility], [address] [place] [address] Phone: tel: fax: Referral ID Status Reason Start Date Expiration Date Visits Re quested Visits Authorized [id number] Closed 12/17/2024 06/18/2026 1 1 Encounter Details Date Type Department Care Team (Late st Contact Info) Description 12/17/2024 11:20 AM EDT Procedure Visit [facility] Orthopaedic Surgery & Sports Medicine [address] [facility], [address] [place] [phone] Kathe Thomas, DO [address] [facility] [address] [place] [phone] Glenohumeral arthritis, right (Primary Dx); Acute pain of right shoulder Social History Tobacco Use Types Packs/Day Years [...] encounter Miscellaneous Notes * Progress Notes - Kateh Thomas DO - 12/17/2024 11:20 AM EDTAssociated Order(s): Sports Medicine - USG Injection, Large Joint: R glenohumeral Pre-Procedure Diagnose(s): Glenohumeral arthritis, right Post-Procedure Diagnose(s): Glenohumeral arthritis, right Procedure Note Encounter Date: 12/17/2024 Chief Complaint: Right shoulder pain Ge Newton is a 64 y.o. male here as a referral from Mercedes William APRN for [facility] Sports Medicine - USG Injection, Large Joint: [...] injury to soft tissue and/or nerves and seizure,the patient indicated understanding and agreed to proceed. Procedural pause conducted to verify: correct patient identity, procedure to be performed and, as applicable, correct side and site, correct patient position, availability of any special equipment orother special requirements. Justification for use of ultrasound [...] gel. Pre-procedural scanning was performed to determine optimalneedle approach for the procedure. The patient was [...] The patient was instructed to contact me withany questions pertaining to the procedure and to [...] time out was called to verify the correctpatient, procedure, equipment, other sales support worker and site/side marked as required. Patient was prepped and draped in the usual sterile fashion. Assessment and Plan: Diagnosis Plan 1. Glenohumeral arthritis, right Sports Medicine - USG Injection, Large Joint: R glenohumeral triamcinolone acetonide (Kenalog-40) injection 40 mg ropivacaine (Naropin) injection 2 mL lidocaine (Xylocaine) 1 % injection 50 mg 2. Acute pain of right shoulder After discussing risks and benefits, including but not limited to bleeding, infection and worseningpain, the patient wished to proceed with the procedure today. See procedure note. Post-injection care instructions were provided. Follow up with Dr. Gardner as scheduled Electronically Signed by: Kathe Thomas DO - 12/17/2024 - 12:07 PM documented in this encounter Plan of Treatment Upcoming Encounters Date Type Department Care Team (Late st Contact Info) Description 03/22/2025 10:40 AM EST Procedure Visit [facility] Orthopaedic Surgery & Sports Medicine [address] [facility], [address] [place] [address] Mercedes William, PROFESSIONAL BONDSMAN [address] [facility] [address] [place] [address] documented as of this encounter Procedures Procedure Name Priority Date/Time Associated Diagnosis Comments RI ARTHROCENTESIS ASPIR&/INJ MAJOR JT/BURSA W/US Routine 12/17/2024 11:20 AM EDT Glenohumeral arthritis, right documented in this encounter Results * RI ARTHROCENTESIS ASPIR&/INJ MAJOR JT/BURSA W/US (12/17/2024 11:20 AM EDT) Narrative Kathe Thomas DO - 12/17/2024 11:20 AM EDT Kathe Thomas DO 12/17/2024 12:07 PM Sports Medicine - [...] to verify the correct patient, procedure, equipment, other sales support worker and site/side marked as required. Patient was prepped and draped in the usual sterile fashion. us Mercedes William APRN IN CLINIC/BEDSIDE ORDERArtur Victor Result - Final documented in this encounter Visit Diagnoses Diagnosis Glenohumeral arthritis, right- Primary Acute pain of right shoulder documented in this encounter Administered Medications Inactive Administered Medications - up to 3 most recent administrations Medication Order MAR Action Action Date Dose Rate Site lidocaine (Xylocaine) 1 % injection 50 mg 50 mg, Intra-articular, Once PRN Procedure, 1 dose, Starting on Leatha 12/17/24 at 1120, Until Leatha 12/17/24 at 1120, RoutineIndications:Glenohumeral arthritis, right Given 12/17/2024 11:20 AM EDT 50 mg ropivacaine (Naropin) injection 2 mL 2 mL, Injection, Once PRN Procedure, 1 dose, Starting on Leatha 12/17/24 at 1120, Until Leatha 12/17/24 at 1120, RoutineIndications:Glenohumeral arthritis, right Given 12/17/2024 11:20 AM EDT 2 mL triamcinolone acetonide (Kenalog-40) injection 40 mg 40 mg, Intra-articular, Once PRN Procedure, 1 dose, Starting on Leatha 12/17/24 at 1120, Until Leatha 12/17/24 at 1120, RoutineIndications:Glenohumeral arthritis, right Given 12/17/2024 11:20 AM EDT 40 mg documented in this encounter Additional Health Concerns Assessment Noted Time A fall risk assessment has been complete d for the patient 12/17/2024 10:33 AM EDT A Body Mass Index follow-up plan has been documented for the patient 12/17/2024 12:07 PM EDT documented as of this encounter Care Teams Automotive Mechanical Engineer Relationship Specialty Start Date End Date Reinaldo Figueroa MD [address] [facility] [address], [place] [address] PCP - General 07/01/20 documented as of this encounter
--- OUTSIDE RECORDS SUMMARY | 2024-12-21 09:15 | XMS_ITS ---
Author Organization [facility] Address [address] [id number] Care Team Providers Care Print Shop Assistant Name Role Phone Reinaldo Figueroa Primary Care Provider Allergies Allergen (clinical drug ingredient) Drug/Non Drug Allergy documented on EMR Reaction Allergy Type Onset Date Status niacin Niacin anaphylaxis Drug Allergy Activ e REASON FOR VISIT lower back pain Medications Medication SIG (Take, Route, Frequency, Duration) Notes Start Date End Date Status Meloxicam 15 MG 1 tablet Orally ever y other day; Duration: 90 days 10/01/2024 Active Ezetimibe 10 MG Take 1 tablet by ning once daily for 90 days; Duration: 90 Active amLODIPine Besylate 2.5 MG 1 tab(s) oral ly once a day; Duration: 90 days Active traMADol HCl 50 MG 1 tablet as needed O rally every 8 hrs 11/12/2024 Active Aspirin 81 MG 1 tablet Orally Once a day; Duration: 90 days Active Tamsulosin HCl 0.4 MG 1 capsule Orally O nce a day; Duration: 30 day(s) Active Repatha 140 MG/ML 1 mL Subcutaneous Ev ирина 2 weeks Active Dapagliflozin Propanediol 10 MG 1 tablet Orally Once a day; Duration: 90 days 09/28/2024 Active oxyBUTYnin Chloride ER 10 MG 1 tablet Orally Once a day; Duration: 90 days Active Pantoprazole Sodium 40 MG 1 tab(s) orall y once a day; Duration: 90 days Active Crestor 40 MG 1 tab(s) orally once a day (at bedtime); Duration: 90 days Active Irbesartan 300 MG 1 tab(s) orally once a day; Duration: 90 days Active Metoprolol Succinate ER 25 MG Take 1 tablet by mouth once daily; Duration: 90 Active Levothyroxine Sodium 125 MCG Take 1 tablet by mouth once daily; Duration: 90 Active Fenofibrate 145 MG 1 tablet Orally Once a day; Duration: 90 days Active Problems Problem Type SNOMED Code ICD Code Onset Dates Problem Status W/U Status Risk Notes Problem Sciatica (27868505) Lumbago with sciatica, right side (M54.41) Active confirmed Problem Sciatica (87234421) Lumbago with sciatica, left side (M54.42) Active confirmed Problem Chronic pain (39410448) Other chronic pain (G89.29) Active confirmed Vital Signs Weight 262.6 lbs 12/21/2024 Blood pressure systolic 126 mm Hg 12/22/19 25 Blood pressure diastolic 78 mm Hg 025 Heart Rate 97 /min 12/21/2024 Height 72 in 12/21/2024 BMI 35.61 kg/m2 12/21/2024 Encounters Encounter Location Date Provider Diagnosis [facility] [address] [facility] [address] [place], [place] [id number] 12/21/2024 Reinaldo Elton Lumbago with sciatic a, right side M54.41 ; Lumbago with sciatica, left side M54.42 and Other chronic pain G89.29 Assessments Encounter Date Diagnosis (ICD Code) Assessment Notes Treatment Notes Treatment Clinical Notes Section Notes 12/21/2024 Lumbago with sciatica, right side (ICD-10 - M54.41) 12/21/2024 Lumbago with sciatica, left side (ICD-10 - M54.42) 12/21/2024 Other chronic pain (ICD-10 - G89.29) Medical records reviewed, [facility] Plan Of Treatment Treatment Notes Assessment Notes Other chronic pain Medical records revi ewed, will provide [facility] to [facility]'s [facility] Next Appt Details Follow Up: prn, Reason: Progress Notes * Jorge NEWTON:1960 (64 yo M)Acc No.[id number]:12/21/2024 Progress Notes Patient: Ge ROBLES Provider: Grazyna Figueroa M.D. :1960 A ge:64 Y S ex:Male Date:12/21/2024 Address:[facility] [address] [facility] [address] [id number] Subjective: * Chief Complaints: * 1 . Lower back pain. * HPI: Rolando owestella back: 64 year old male presents with c/o Low Back Pain P t states he is here follow up on lower back pain. Pt states he has not been in due to dealing with [facility] and trying to get his [facility]. Pt states the [facility] was supposed to [facility]. Pt states he is needing a [facility] letter. Pt states the pain is in his lower back and going into both legs. Pt states it is a sharp, shooting pain. Pt states any type of movement causes his back to hurt. * Medical History: H ypercholestrolemia, Hypothyroidism, Esophageal [...] affeine: yes, frequency:. Marital Status: . Occupation: [employer]. Past smoking status: yes, Smoking status: Patient [...] tab(s) orally once a day , Taking traMADol HCl 50 MG Tablet 1 tablet as needed Orally every 8 hrs , Taking Fenofibrate 145 MG Tablet 1 tablet Orally Once a day , Taking Irbesartan 300 MG Tablet 1 tab(s) orally once a day , Taking Crestor 40 MG Tablet 1 tab(s) orally once a day (at bedtime) , Taking Pantoprazole Sodium 40 MG Tablet Delayed Release 1 tab(s) orally once a day , Taking Levothyroxine Sodium 125 MCG Tablet Take 1 tablet by mouth once daily , Taking Metoprolol Succinate ER 25 MG Tablet Extended Release 24 Hour Take 1 tablet by mouth once daily , Discontinued dexAMETHasone 4 MG Tablet 1 tablet Orally twice a day , Medication List reviewed and reconciled with the patient * Allergies: N iacin: anaphylaxis. Objective: * Vitals: W t: 262.6, Temp: 98.0, BP: 126/78, HR: 97, Nurse: THEODORE, Ht: 72, BMI:35.61. * Examination: G eneral Examination: General Appearance: N AD. Assessment: * Assessment: 1. L umbago with sciatica, right side - M54.41 (Primary) 2 . L umbago with sciatica, left side - M54.42 3 . O ther chronic pain - G89.29 Plan: * Treatment: * Procedure Codes: G 2211 Complex e/m visit add on * Follow Up: p rn * Images: Billing Information: * Visit Code: 10521 Office Visit, Est Pt., Level 3. * Procedure Codes: G2211 Complex e/m visit add on. * Electronic signature of Muriel Figueroa MD on 02/09/2025 at 08:33 AM EST Sign off status: Pending * Provider: Grazyna Figueroa M.D. Date: 02/21/2024 Generated for Jaimee cobos/Melissa/Mauro on: 04/12/2024 08:33 AM EST History and Physical Notes * HPI (History of Present Illness) Category Sub-Category Detail Notes Category Not es Lower back Low Back Pain Pt states he is here follow up on lower back pain. Pt states he has not been in due to dealing [facility] and trying to get his disibility. Pt states the [facility] was supposed to send him paperwork. Pt states he is needing a [facility] letter. Pt states the pain is in his lower back and going into both legs. Pt states it is a sharp, shooting pain. Pt states any type of movement causes his back to hurt Examination Category Sub-Category Detail Notes Category Not es General Examination General Appearance: NAD
--- OUTSIDE RECORDS SUMMARY | 2025-02-09 08:31 | XMS_ITS | Encounter Summary ---
Author Organization Healthcare Address [address] [place] [address] Care Team Providers Care Slab Inspector Name Role Phone Reinaldo Figueroa MD Primary Care Provider [phone] Encounter Details Date Type Department Care Team (Late st Contact Info) Description 11/17/2024 Orders Only External Location [address] [place] [address] Provider, External Social History Tobacco Use Types Packs/Day Years Used Date Smoking Tobacco: Former Alcohol Use Standard Drinks/Week Comments Yes 0 (1 standard drink = 0.6 oz pure alcohol) Alcoholic Drinks/day: Social alcohol use Sex and Gender Information Value Date Recorded Sex Assigned at Male 12/18/2024 8:11 AM EDT Legal Sex Male 7:37 PM EDT Gender Identity Male 12/18/2024 8:11 AM EDT Sexual Orientation Not on file documented as of this encounter Plan of Treatment Upcoming Encounters Date Type Department Care Team (Late st Contact Info) Description 03/22/2025 10:40 AM EST Procedure Visit [facility] Orthopaedic Surgery & Sports Medicine [address] [facility], [address] [place] [address] Mercedes William, SPORTS COORDINATOR [address] [facility] [place] [address] documented as of this encounter Procedures Procedure Name Priority Date/Time Associated Diagnosis Comments MR MSK OUTSIDE IMAGES 11/17/2024 7:33 AM EDT documented in this encounter Results * MR MSK OUTSIDE IMAGES (11/17/2024 7:33 AM EDT) Anatomical Region Laterality Modality Magnetic Resonan ce 11/17/2024 7:33 AM EDT us External Provider IMG MRI PROCEDURES Final Resul t documented in this encounter Visit Diagnoses Not on filedocumented in this encounter Care Teams Slab Inspector Relationship Specialty Start Date End Date Reinaldo Figueroa MD [address] [place] [address] PCP - General 07/01/20 documented as of this encounter
--- OUTSIDE RECORDS SUMMARY | 2025-02-09 08:31 | XMS_ITS ---
Author Organization Unknown Vital Signs BpStanding BpSitting BpSupine Date Temperature HeartRate Weight Hei ght Spo2 Respiration Bmi HeadCircumference FieldCount TimeRecorded NeckCircumferen ce WaistCircumference Pulse Custom 126/78 12/21 00:00 :00 98.0 97 262,9.6 0 6,0 35.6 1 6 01/31/2025 14:15:00 124/72 11/06 00:00 :00 97.9 70 264,0 6,0 35.8 6 01/31/2025 10:45:00 122/72 09/24 00:00 :00 98.0 71 265,12. 80 6,0 36.0 5 6 01/31/2025 10:15:00 122/70 06/12 00:00 :00 97.8 73 265,0 6,0 35.9 4 6 01/31/2025 09:00:00 114/71 12/12 00:00 :00 97.7 74 250,12. 80 6,0 34.0 1 6 01/31/2025 09:00:00 120/80 06/12 00:00 :00 98.0 64 249,3.2 0 6,0 33.7 9 6 01/31/2025 09:30:00 120/78 03/06 00:00 :00 98.0 58 234,6.4 0 6,0 31.7 9 6 01/31/2025 09:15:00 120/72 11/13 00:00 :00 97.8 54 239,0 6,0 32.4 1 6 01/31/2025 09:45:00 108/76 10/01 00:00 :00 97.5 63 248,0 6,0 33.6 3 6 01/31/2025 09:00:00 130/84 07/12 00:00 :00 97.5 66 245,6.4 0 6,0 33.2 8 6 01/31/2025 09:00:00 112/74 03/30 00:00 :00 98.0 64 241,0 6,0 32.6 8 6 01/31/2025 09:00:00
--- OUTSIDE RECORDS SUMMARY | 2025-02-09 08:31 | XMS_ITS | Encounter Summary ---
Author Organization [facility] Address [address] [place] [address] Care Team Providers Care Spotter Name Role Phone Reinaldo Figueroa MD Primary Care Provider + [phone] Encounter Details Date Type Department Care Team (Latest Contact Info) Description 12/16/2024 Travel Social History Tobacco Use Types Packs/Day Years [...] 10:40 AM EST Procedure Visit [facility] Orthopaedic Surgery & Sports Medicine [address], [address] [place] [address] Mercedes William, LEAD PRESS OPERATOR [address] [facility] [place] [address] documented as of this encounter Visit Diagnoses Not on filedocumented in this encounter Care Teams Spotter Relationship Specialty Start Date End Date Reinaldo Figueroa MD [address] [place] [id number] PCP - General 07/01/20 documented as of this encounter
--- OUTSIDE RECORDS SUMMARY | 2025-02-09 08:31 | XMS_ITS | Encounter Summary ---
Author Organization Healthcare Address [address] [place] [address] Care Team Providers Care Animal Groomer Name Role Phone Reinaldo Figueroa MD Primary Care Provider + [phone] Encounter Details Date Type Department Care Team (Late st Contact Info) Description 12/14/2024 Orders Only External Location [address] [place] [address] Provider, External Social History Tobacco Use Types [...] Olga Soto documented as of this encounter Plan of Treatment Upcoming Encounters Date Type Department Care Team (Late st Contact Info) Description 03/22/2025 10:40 AM EST Procedure Visit [facility] Orthopaedic Surgery & Sports Medicine [address], [address] [place] [address] Mercedes William, HYDRAULIC OPERATOR [address] [place] [address] documented as of this encounter Procedures Procedure Name Priority Date/Time Associated Diagnosis Comments POC ULTRASOUND 12/14/2024 documented in this encounter Results * POC Imaging (12/14/2024) Anatomical Region Laterality Modality Pelvis Other 12/14/2024 us External Provider IMG POINT OF CARE ULTRASOUND F inal Result documented in this encounter Visit Diagnoses Not on filedocumented in this encounter Care Teams Animal Groomer Relationship Specialty Start Date End Date Reinaldo Figueroa MD [address] [place], [place] [phone] PCP - General 07/01/20 documented as of this encounter
--- OUTSIDE RECORDS SUMMARY | 2025-02-09 08:32 | XMS_ITS | Patient Health Record ---
Author Organization [facility] Address [address] [place], [place] [id number] Care Team Providers Care County Engineer Name Role Phone Reinaldo Figueroa Primary Care Provider [phone] Allergies Allergen (clinical drug ingredient) Drug/Non Drug Allergy documented on EMR Reaction Allergy Type Onset Date Status niacin Niacin anaphylaxis Drug Allergy Activ e Results Component Value Reference Range Notes P-Comprehensive Metabolic Pa mitesh (CMP) Reviewed date:06/16/2024 09:18:19 AM Interpretation:Cr 1.62, gfr 47 Performing Lab: Notes/Report: CLIA: [id number] Mateusz Cortes MD, Application Systems Architect [address] , [address], [place] [address] Test performed by [employer], [facility] Sodium 137 135-145 mmol/L Potassium 4.6 3.5-5.3 [...] 09:18:19 AM Interpretation:hdl 38 Performing Lab: Notes/Report: CLIA: [id number] Mateusz Cortes MD, Application Systems Architect [address] [place] [address] , [address], [place] [address] Test performed by [employer], [facility] Cholesterol 163 <200 mg/dL Triglycerides 135 <150 [...] Normal Performing Lab: Notes/Report: Test performed by [facility] [address] [place] [address] , [place] [address] Mateusz Cortes MD, Application Systems Architect CLIA: [id number] TSH reflex to FT4 1.10 0.43-5.25 mU/L P-Microalbumin/Creatinine, R andom Urine Sample Reviewed date:06/16/2024 09:18:19 AM Interpretation: Normal Performing Lab: Notes/Report: CLIA: [id number] Mateusz Cortes MD, Application Systems Architect [address] [place] [address] , [place] [address] Test performed by [employer] [facility] Albumin/Creatinine Ratio, Urine 9 0-30 ug/mg Microalbumin, Urine, Random 0.4 Creatinine, Urine 46.1 P-Vitamin D 25-Hydroxy Reviewed date:06/16/2024 09:18:19 AM Interpretation: Normal Performing Lab: Notes/Report: Test performed by [facility] [address] [place] [address] , [place] [address] Mateusz Cortes MD, Application Systems Architect CLIA: [id number] Vitamin D 25-Hydroxy 55.7 30.0-100.0 ng/mL Interpretation of Vitamin D 25 OH: < 20 ng/mL - Deficiency 20 - 29 ng/mL - Insufficiency 30 - 100 ng/mL - Sufficiency > 100 ng/mL - Super-therapeutic- toxicity may occur above this level. Clinical correlation required. P-Basic Metabolic Panel (BMP ) Reviewed date:09/25/2024 11:09:50 AM Interpretation:bun 26, Cr 1.43, gfr 54 Performing Lab: Notes/Report: CLIA: [id number] Mateusz Cortes MD, Application Systems Architect [address] [place] [address] , [place] [address] Test performed by [facility] Sodium 138 135-145 mmol/L Potassium 4.6 3.5-5.3 mmol/L Chloride 103 97-108 mmol/L CO2 22 20-32 mmol/L Glucose 86 65-99 mg/dL BUN 26 8-23 mg/dL Creatinine 1.43 0.70-1.30 mg/dL Calcium 9.8 8.6-10.4 mg/dL eGFR by Creatinine 54 >59 mL/min/1.73m2 P-Phosphorus Reviewed date:09/25/2024 11:09:50 AM Interpretation:Normal Performing Lab: Notes/Report: Test performed by [facility] [address] [place] [address] , [place] [address] Mateusz Cortes MD, Application Systems Architect CLIA: [id number] Phosphorus 3.4 2.5-4.5 mg/dL P-PSA Reviewed date:09/25/2024 11:09:50 AM Interpretation:Normal Performing Lab: Notes/Report: Test performed by [facility] [address] [place] [address] , [place] [address] Mateusz Cortes MD, Application Systems Architect CLIA: [id number] PSA 1.57 <4.00 ng/mL Please note this is an ultrasensitive PSA assay with a lower limit of detection of 0.014 ng/mL. This test is performed by the [employer] ECLIA methodology. Values obtained with different assay methods or kits cannot be directly compared. P-Parathyroid Hormone (PTH) Intact Reviewed date:09/25/2024 11:09:50 AM Interpretation:Normal Performing Lab: Notes/Report: Test performed by [facility] [address] [place] [address] , [place] [id number] Mateusz Cortes MD, Application Systems Architect CLIA: [id number] Parathyroid Hormone (PTH) Intact 23.8 15.0-65.0 pg/mL P-Vitamin D 25-Hydroxy Reviewed date:09/25/2024 11:09:50 AM Interpretation:Normal Performing Lab: Notes/Report: Test performed by [facility] [address] [place] [address] , [place] [address] Mateusz Cortes MD, Application Systems Architect CLIA: [id number] Vitamin D 25-Hydroxy 54.2 30.0-100.0 ng/mL Interpretation of Vitamin D 25 OH: < 20 ng/mL - Deficiency 20 - 29 ng/mL - Insufficiency 30 - 100 ng/mL - Sufficiency > 100 ng/mL - Super-therapeutic- toxicity may occur above this level. Clinical correlation required. MRI : Shoulder, right, witho ut contrast Reviewed date:11/19/2024 11:27:24 AM Interpretation:Abnormal Performing Lab: Notes/Report: Abnormal Medications Medication SIG (Take, Route, Frequency, Duration) Notes Start Date End Date Status Aspirin 81 MG 1 tablet Orally Once a day; Duration: 90 days Active Pantoprazole Sodium 40 MG 1 tab(s) orall y once a day; Duration: 90 days Active Tamsulosin HCl 0.4 MG 1 capsule Orally O nce a day; Duration: 30 day(s) Active Crestor 40 MG 1 tab(s) orally once a day (at bedtime); Duration: 90 days Active Repatha 140 MG/ML 1 mL Subcutaneous Ev ирина 2 weeks Active Irbesartan 300 MG 1 tab(s) orally once a day; Duration: 90 days Active Fenofibrate 145 MG 1 tablet Orally Once a day; Duration: 90 days Active Meloxicam 15 MG 1 tablet Orally ever y other day; Duration: 90 days 10/01/2024 Active Ezetimibe 10 MG Take 1 tablet by ning th once daily for 90 days; Duration: 90 Active Metoprolol Succinate ER 25 MG Take 1 tablet by mouth once daily; Duration: 90 Active oxyBUTYnin Chloride ER 10 MG 1 tablet Orally Once a day; Duration: 90 days Active Levothyroxine Sodium 125 MCG Take 1 tablet by mouth once daily; Duration: 90 Active amLODIPine Besylate 2.5 MG 1 tab(s) oral ly once a day; Duration: 90 days Active Dapagliflozin Propanediol 10 MG 1 tablet Orally Once a day; Duration: 90 days Active traMADol HCl 50 MG 1 tablet as needed O rally every 8 hrs 11/12/2024 Active Immunizations Vaccine Route Administration Date Status Comme nts Shingrix IM Intramuscular 05/02/2018 Administered Shingrix IM Intramuscular 08/12/2018 Administered Hepatitis A (adult) Unknown 10/21/2017 Administered Hepatitis A (adult) IM Intramuscular 05/02/2018 Administer ed Hep A- Pediatric Unknown 10/30/2017 Administered Hep A- Pediatric Unknown 10/30/2017 Administered Fluzone Quad (6months&older) IM Intramuscular 12/18/2019 Administered Fluzone Quad (6months&older) IM Intramuscular 01/02/2021 Administered Fluzone Quad (6months&older) IM Intramuscular 12/12/2021 Administered Fluzone Quad (6months&older) IM Intramuscular 11/13/2022 Administered Fluzone Quad (6months&older) IM Intramuscular 12/13/2023 Administered COVID 19 Moderna Unknown 05/18/2020 Administered COVID 19 Moderna Unknown 01/04/2021 Administered Problems Problem Type SNOMED Code ICD Code Onset Dates Problem Status W/U Status Risk Notes Problem Vitamin D deficiency (72678017) Vitamin D deficiency (E55.9) Active confirmed Problem Hypertriglyceridemia (711097827) Hypertriglyceridemia (E78.1) Active confirmed Problem Sciatica (49137980) Lumbago with sciatica, right side (M54.41) Active confirmed Problem Mixed hyperlipidemia (624522836) Mixed hyperlipidemia (E78.2) Active confirmed Problem Chronic maxillary sinusitis (06738206) Chronic maxillary sinusitis (J32.0) Active confirmed Problem Sciatica (16129538) Lumbago with sciatica, left side (M54.42) Active confirmed Problem History of polyp of colon (situation) (388097449) History of colon polyps (Z86.010) Active confirmed Problem Chronic pain (17173511) Other chronic pain (G89.29) Active confirmed Problem Acquired hypothyroidism (169174497) Acquired hypothyroidism (E03.9) Active confirmed Problem Obese class II (078188492512237) BMI 36.0-36.9,adult (Z68.36) Active confirmed Problem Obstructive sleep apnea syndrome (16005296) Obstructive sleep apnea syndrome (G47.33) Active confirmed Problem Atherosclerotic hear t disease of iroquois coronary artery without angina pectoris (880439771483276) Coronary artery disease involving iroquois coronary artery of iroquois heart without angina pectoris (I25.10) Active confirmed Problem Gastroesophageal reflux disease (586787161) Gastroesophageal reflux disease, esophagitis presence not specified (K21.9) Active confirmed Problem Chronic sinusitis (02399180) Chronic sinusitis, unspecified location (J32.9) Active confirmed Problem Lower urinary tract symptoms due to benign prostatic hypertrophy (01443211714687) Benign prostatic hyperplasia with lower urinary tract symptoms, symptom details unspecified (N40.1) Active confirmed Problem Obesity (015287054) Non morbid o besity (E66.9) Active confirmed Problem History of placement of stent for coronary artery disease (situation) (693514684) S/P coronary artery stent placement (Z95.5) Active confirmed Problem Allergic rhinitis (69947327) Allergic rhinitis, unspecified seasonality, unspecified trigger (J30.9) Active confirmed Problem Rupture of right rotator cuff (19797065155364876) Tear of right rotator cuff, unspecified tear extent, unspecified whether traumatic (M75.101) Active confirmed Problem Chronic kidney disease stage 3A (305826614) Stage 3a chronic kidney disease (N18.31) Active confirmed Problem Primary hypertension (23475591) Primary hypertension (I10) Active confirmed Vital Signs Heart Rate 97 /min 12/21/2024 Blood pressure diastolic 78 mm Hg 12/21/2024 Height 72 in 12/21/2024 Blood pressure systolic 126 mm Hg 12/21/2024 Weight 262.6 lbs 12/21/2024 BMI 35.61 kg/m2 12/21/2024 Encounters Encounter Location Date Provider Diagnosis [facility] [address] [place] [id number] 06/12/2024 Reinaldo [place] Primary hypertension I10 ; Mixed hyperlipidemia E78.2 ; Stage 3a chronic kidney disease N18.31 ; Coronary artery disease involving iroquois coronary artery of iroquois heart without angina pectoris I25.10 ; Obstructive sleep apnea syndrome G47.33 ; Gastroesophageal reflux disease, esophagitis presence not specified K21.9 ; Vitamin D deficiency E55.9 ; Non morbid obesity E66.9 and Benign prostatic hyperplasia with lower urinary tract symptoms, symptom details unspecified N40.1 [facility] [address] [place] [id number] 09/24/2024 Reinaldo [place] Primary hypertension I10 ; Stage 3a chronic kidney disease N18.31 ; Vitamin D deficiency E55.9 ; Prostate cancer screening Z12.5 ; Acquired hypothyroidism E03.9 ; Coronary artery disease involving iroquois coronary artery of iroquois heart without angina pectoris I25.10 ; Mixed hyperlipidemia E78.2 ; BMI 36.0-36.9,adult Z68.36 and Non morbid obesity E66.9 [facility] [address] [place], [place] [id number] 11/06/2024 Reinaldo [place] Acute pain of right shoulder M25.511 [facility] [address] [place], [place] [id number] 12/21/2024 Reinaldo [place] Lumbago with sciatic a, right side M54.41 ; Lumbago with sciatica, left side M54.42 and Other chronic pain G89.29 [facility] [address] [place], [place] [id number] 11/24/2024 Reinaldo [place] [facility] [address] [place], [place] [id number] 06/16/2024 Reinaldo [place] [facility] [address] [place], [place] [id number] 09/25/2024 Reinaldo [place] Primary hypertension I10 [facility] [address] [place], [place] [id number] 09/28/2024 Reinaldo [place] Stage 3a chronic kid everardo disease N18.31 [facility] [address] [place], [place] [id number] 10/12/2024 Reinaldo [place] [facility] [address] [place], [place] [id number] 10/20/2024 Reinaldo [place] Primary hypertension I10 [facility] [address] [place], [place] [id number] 10/20/2024 Reinaldo [place] Gastroesophageal ref lux disease, esophagitis presence not specified K21.9 ; Mixed hyperlipidemia E78.2 ; Primary hypertension I10 ; Acquired hypothyroidism E03.9 and Hypertriglyceridemia E78.1 [facility] [address] [place], [place] [id number] 11/11/2024 Reinaldo [place] Right shoulder pain, unspecified chronicity M25.511 [facility] [address] [place], [place] [id number] 11/19/2024 Reinaldo [place] Pain in right should er M25.511 ; Tear of right rotator cuff, unspecified tear extent, unspecified whether traumatic M75.101 and Biceps tendon tear S46.219A [facility] [facility] [address] [place] [id number] 11/30/2024 Reinaldo [place] Hypertriglyceridemia E78.1 ; Acquired hypothyroidism E03.9 ; Primary hypertension I10 ; Mixed hyperlipidemia E78.2 and Gastroesophageal reflux disease, esophagitis presence not specified K21.9 [facility] [address] [facility] [address] [place], [place] [id number] 12/30/2024 Reinaldo [place] [facility] [address] [place] [id number] 01/25/2025 Reinaldo [place] Assessments Encounter Date Diagnosis (ICD Code) Assessment Notes Treatment Notes Treatment Clinical Notes Section Notes 06/12/2024 Mixed hyperlipidemia (ICD-10 - E78.2) 06/12/2024 Primary hypertension (ICD-10 - I10) 09/24/2024 Stage 3a chronic kid everardo disease (ICD-10 - N18.31) 09/24/2024 Primary hypertension (ICD-10 - I10) 09/25/2024 Primary hypertension (ICD-10 - I10) 09/28/2024 Stage 3a chronic kid everardo disease (ICD-10 - N18.31) 10/20/2024 Primary hypertension (ICD-10 - I10) 11/06/2024 Acute pain of right shoulder (ICD-10 - M25.511) Rest, ice, call with a progress report next week 11/11/2024 Right shoulder pain, unspecified chronicity (ICD-10 - M25.511) 11/19/2024 Pain in right should er (ICD-10 - M25.511) 10/20/2024 Gastroesophageal ref lux disease, esophagitis presence not specified (ICD-10 - K21.9) 11/19/2024 Tear of right rotato r cuff, unspecified tear extent, unspecified whether traumatic (ICD-10 - M75.101) 11/30/2024 Hypertriglyceridemia (ICD-10 - E78.1) 12/21/2024 Lumbago with sciatic a, right side (ICD-10 - M54.41) 12/21/2024 Lumbago with sciatic a, left side (ICD-10 - M54.42) 12/21/2024 Other chronic pain (ICD-10 - G89.29) Medical records reviewed, [facility] 11/30/2024 Acquired hypothyroid ism (ICD-10 - E03.9) 06/12/2024 Stage 3a chronic kid everardo disease (ICD-10 - N18.31) 11/19/2024 Biceps tendon tear (ICD-10 - S46.219A) 10/20/2024 Mixed hyperlipidemia (ICD-10 - E78.2) 09/24/2024 Vitamin D deficiency (ICD-10 - E55.9) 06/12/2024 Coronary artery dise ase involving iroquois coronary artery of iroquois heart without angina pectoris (ICD-10 - I25.10) 09/24/2024 Prostate cancer screening (ICD-10 - Z12.5) 10/20/2024 Primary hypertension (ICD-10 - I10) 11/30/2024 Primary hypertension (ICD-10 - I10) 11/30/2024 Mixed hyperlipidemia (ICD-10 - E78.2) 09/24/2024 Acquired hypothyroid ism (ICD-10 - E03.9) 10/20/2024 Acquired hypothyroid ism (ICD-10 - E03.9) 06/12/2024 Obstructive sleep ap doris syndrome (ICD-10 - G47.33) 06/12/2024 Gastroesophageal ref lux disease, esophagitis presence not specified (ICD-10 - K21.9) 09/24/2024 Coronary artery dise ase involving iroquois coronary artery of iroquois heart without angina pectoris (ICD-10 - I25.10) 10/20/2024 Hypertriglyceridemia (ICD-10 - E78.1) 11/30/2024 Gastroesophageal ref lux disease, esophagitis presence not specified (ICD-10 - K21.9) 09/24/2024 Mixed hyperlipidemia (ICD-10 - E78.2) 06/12/2024 Vitamin D deficiency (ICD-10 - E55.9) 09/24/2024 BMI 36.0-36.9,adult (ICD-10 - Z68.36) 06/12/2024 Non morbid obesity (ICD-10 - E66.9) 09/24/2024 Non morbid obesity (ICD-10 - E66.9) 06/12/2024 Benign prostatic hyperplasia with lower urinary tract symptoms, symptom details unspecified (ICD-10 - N40.1) Plan Of Treatment No Information Insurance Providers Payer Name Payer Address Payer Phone Subscriber Number Group Number Insured Name Patient Relationship to Insured Coverage Start Date Coverage End Date MEDICARE PART B [address] [address] [place] [address] [id number] Ge [place] Self - patient is the insured [employer] (MEDICARE) [address] [address] [place] [address] [phone] [id number] Ge [place] Self - patient is the insured Medical (General) History Medical History History ICD Code Hypercholestrolemia Hypothyroidism Esophageal Reflux Low Back Pain, h/o Lumbar Herniated Disc Colon Polyps Sleep Apnea Coronary Artery Disease, abn ormal coronary calcium score and stress test, PCI with stent 2021 Surgical History Surgery Date(Month/Year) Lumbar Spine Fusion 12/2002 LT Shoulder Labrum Repair 09/2005 L5 Diskectomy 09/07/2011 Cholecystectomy Hernia Colonoscopy, 2017 Percutaneous Coronary Intervention 12/07 21
--- OUTSIDE RECORDS SUMMARY | 2025-02-09 08:32 | XMS_ITS | Encounter Summary ---
Author Organization [facility] Address [address] [place] [address] Care Team Providers Care Analyst Competitive Intelligence Name Role Phone Reinaldo Figueroa MD Primary Care Provider + [phone] Encounter Details Date Type Department Care Team (Latest Contact Info) Description 12/14/2024 Travel Social History Tobacco Use Types Packs/Day Years Used Date Smoking Tobacco: Former Cigarettes 1 45 0 08/18/1974 - 02/18/2017 Smokeless Tobacco: Never Alcohol Use Standard Drinks/Week Comments Yes 8 [...] PM EDT documented as of this encounter Plan of Treatment Upcoming Encounters Date Type Department Care Team (Late st Contact Info) Description 12/14/2025 11:15 AM EDT Office Visit [facility] [address] [place] [address] Per Sanchez III, MD [address] [facility] [address] [place] [address] documented as of this encounter Visit Diagnoses Not on filedocumented in this encounter Care Teams Analyst Competitive Intelligence Relationship Specialty Start Date End Date Reinaldo Figueroa MD [address] [facility] [address] [place] [address] PCP - General Family Medicine 10/31/21 documented as of this encounter
--- OUTSIDE RECORDS SUMMARY | 2025-02-09 08:32 | XMS_ITS | Clinical Summary ---
Author Organization [facility] Address [address] [place] [address] Care Team Providers Care Addressograph Operator Name Role Phone Reinaldo Figueroa MD Primary Care Provider + [phone] Allergies Active Allergy Reactions Criticality Noted Date Comments Niacin Anaphylaxis High 12/17/2024 Medications traMADol (Ultram) 50 MG tablet Take 1 tablet by mouth every 8 hours as needed. Active tamsulosin (Flomax) 0.4 MG 24 hr capsule Take 1 capsule by mouth daily. 5 Active rosuvastatin (Crestor) 40 MG tablet Take 1 tablet by mouth daily. 5 Active aspirin 81 MG EC tablet Take 1 tablet by mouth daily. Active dapagliflozin (Farxiga) 10 MG tablet Take 1 tablet by mouth daily. 5 Active Evolocumab (Repatha) 140 MG/ML solution prefilled syringe 1 mL Subcutaneous Every 2 weeks Active levothyroxine (Synthroid, Levoxyl) 125 MCG tablet Take 1 tablet by mouth. Active metoprolol succinate XL (Toprol-XL) 25 MG 24 hr tablet Take 1 tablet by mouth daily. 5 Active meloxicam (Mobic) 15 MG tablet Take 1 tablet by mouth. Active finasteride (Proscar) 5 MG tablet Take 1 tablet by mouth daily. 4 Active fenofibrate (Tricor) 145 MG tablet Take 1 tablet by mouth daily. Active esomeprazole (NexIUM) [address] capsule 4 Active dexamethasone (Decadron) 4 MG tablet Take 1 tablet by mouth 2 times a day. Active amLODIPine (Norvasc) 2.5 MG tablet Take 1 tablet by mouth daily. Active Active Problems Problem Noted Date Diagnosed Date Obesity (BMI 35.0-39.9 without comorbidity) 03/2024 Severe obesity (BMI 35.0-39.9) with comorbidity 12/20/2024 Vitamin D deficiency 12/17/2024 Obstructive sleep apnea syndrome 12/17/2024 History of coronary artery stent placement 12/17 Gastroesophageal reflux disease 12/17/2024 Acquired hypothyroidism 12/17/2024 Tear of right rotator cuff 12/17/2024 Sensorineural hearing loss (SNHL) of both ears 1 Nocturia 07/09/2024 Kidney anomaly, congenital 04/22/2024 Primary hypertension 10/31/2021 Mixed hyperlipidemia 10/31/2021 Coronary artery calcification 10/31/2021 Overview (12/17/2024): September 2021 coronary calcium score: 3876, 97 percentile. Heart disease 09/22/2021 Overview (12/17/2024): Stent Osteoarthritis of glenohumeral joint 10/22/2013 Left shoulder pain 08/26/2008 Overview (12/17/2024): 2 screws for torn labrum Between 2009 and 2011 gave me shots for relief from bone spur and told me I needed shoulder replacement- I opted out because of length of use after surgery Chronic bilateral low back pain with bilateral s ciatica 10/02/1982 Overview (12/17/2024): Injury in the [employer] Have had two back surgeries- first one had two bars and 4 screws in lower back and second one just above the bars for broken vertebrae due to bone spurs Encounters Date Type Department Care Team Description 12/17/2024 11:20 AM EDT Procedure Visit [facility] [address] [place] [address] Kathe Thomas, Glenohumeral arthritis, right (Primary Dx); Acute pain of right shoulder 12/17/2024 10:50 AM EDT Office Visit [facility] [address], [address] [place] [address] Salazar Gardner MD Glenohumeral arthritis, right (Primary Dx); Chronic right shoulder pain 12/17/2024 10:46 AM EDT - 12/17/2024 11:59 PM EDT Hospital Encounter [facility] [address], [address] [place] [id number] Acute pain of right shoulder Discharge Disposition: Home or Self Care 12/17/2024 Travel 12/16/2024 Travel 12/14/2024 Orders Only External Location [address] [place] [id number] Provider, External 11/17/2024 Orders Only External Location [address] [place] [address] Provider, External from Last 3 Months Family History Medical History Relation Name Comments Conversions - Other Father High blo od cholesterol Other cancer Father Arthritis Mother Cardiac disorder Mother Cardiac disorder Other 1 Stroke Other 2 Other cancer Other 3 Thyroid disease Other 4 Relation Name Status Comments Father Mother Other 1 Other 2 Other 3 Other 4 Social History Tobacco Use Types Packs/Day Years [...] AM EDT Sexual Orientation Not on file Last Filed Vital Signs Vital Sign Reading [...] Mass Index 35.26 12/17/2024 10:31 AM EDT Plan of Treatment Upcoming Encounters Date Type Department Care Team (Late st Contact Info) Description 03/22/2025 10:40 AM EST Procedure Visit [facility] [address], [address] [place] [address] Mercedes William, HOME ADVISOR [address] [place] [address] Health Maintenance Due Date Last Done Comments [facility]-Hepatitis C Screening 1960 [facility]-Medicare Annual Wellness (AWV) 1960 [facility]-Infant/Child/Adol SDOH Screenings 1960 [facility]- SDOH Screenings 08/26/1977 [facility]-Adult SDOH Screenings 08/26/1977 [facility]-DTaP,Tdap,and Td Vaccine s (1 - Tdap) 08/26/1978 CT Colonography 08/26/2004 Colonoscopy 08/26/2004 FIT-DNA 08/26/2004 FIT 08/26/2004 FOBT 08/26/2004 Sigmoidoscopy 08/26/2004 [facility]-Colorectal Cancer Screening 08/26/2004 [facility]-Pneumococcal Vaccine: 50 + Years (1 of 1 - PCV) 08/26/2009 [facility]-RSV Vaccine: 60+ Years o r (1 - Risk 50-74 years 1-dose series) 08/26/2009 [facility]-Zoster Vaccines (2 of 3) 10/07/2018, 05/02/2018 [facility]-Abdominal Aortic Aneurys m (AAA) Screening 08/26/2024 EUL-BPVHI-59 Vaccine (4 - 2024- season) 2024 01/04/2021, 05/18/2020, 04/20/2020 [facility]-Influenza Vaccine (#1) 10/19/202412/12, 01/02/2021, 12/18/2019 [facility]-Depression Screening 12/17/2025 12/17/2024 [facility]-Hepatitis A Vaccines Aged Out 019, 10/30/2017, 10/21/2017 No longer eligible based on patient's age to complete this topic [facility]-Obesity Intervention Completed 025, 12/17/2024 HPV Vaccines (No Doses Required) Completed [facility]-HIB Vaccines Aged Out No longer e ligible based on patient's age to complete this topic [facility]-IPV Vaccines Aged Out No longer e ligible based on patient's age to complete this topic [facility]-Rotavirus Vaccines Aged Out No lo nger eligible based on patient's age to complete this topic Procedures Procedure Name Priority Date/Time Associated Diagnosis Comments MN ARTHROCENTESIS ASPIR&/INJ MAJOR JT/BURSA W/US Routine 12/17/2024 11:20 AM EDT Glenohumeral arthritis, right XR SHOULDER RIGHT 2+ VIEWS Routine 12/17/2024 10:57 AM EDT Acute pain of right shoulder POC ULTRASOUND 12/14/2024 MR [facility] OUTSIDE IMAGES 11/17/2024 7:33 AM EDT from Last 3 Months Results * MN ARTHROCENTESIS ASPIR&/INJ MAJOR JT/BURSA W/US (12/17/2024 11:20 AM EDT) Narrative Kathe Thomas, DO - 12/17/2024 11:20 AM EDT Kathe [...] to verify the correct patient, procedure, equipment, customer support associate and site/side marked as required. Patient was prepped and draped in the usual sterile fashion. us Mercedes William APRN IN CLINIC/BEDSIDE ORDERA BLES Edited Result - Final * XR Shoulder [...] Gardner MD IMG XR PROCEDURES Final Result * POC Imaging (12/14/2024) Anatomical Region Laterality Modality Pelvis Other 12/14/2024 us External Provider IMG POINT OF CARE ULTRASOUND F inal Result * [facility] OUTSIDE IMAGES (11/17/2024 7:33 AM EDT) Anatomical Region Laterality Modality Magnetic Resonan ce 11/17/2024 7:33 AM EDT us External Provider IMG MRI PROCEDURES Final Resul t from Last 3 Months Insurance MEDICARE HUMAN Care Teams Addressograph Operator Relationship Specialty Start Date End Date Reinaldo Figueroa MD [address] [place] [address] PCP - General 07/01/20
--- OUTSIDE RECORDS SUMMARY | 2025-02-09 08:32 | XMS_ITS | Encounter Summary ---
Author Organization [facility] Address [address] [place] [address] Care Team Providers Care Tube Wrapper Name Role Phone Reinaldo Figueroa MD Primary Care Provider + [phone] Encounter Details Date Type Department Care Team (Latest Contact Info) Description 12/17/2024 Travel Social History Tobacco Use Types Packs/Day [...] Description 03/22/2025 10:40 AM EST Procedure Visit [facility] [address], [address] [place] [address] Mercedes William, POULTRY OFFAL ICER [address] [place] [address] documented as of this encounter Visit Diagnoses Not on filedocumented in this encounter Additional Health Concerns Assessment Noted Time A fall risk assessment has been complete d for the patient 12/17/2024 10:33 AM EDT A Body Mass Index follow-up plan has been documented for the patient 12/17/2024 12:07 PM EDT documented as of this encounter Care Teams Tube Wrapper Relationship Specialty Start Date End Date Reinaldo Figueroa MD [address] [place] [id number] PCP - General 07/01/20 documented as of this encounter
--- NOTE | 2025-02-09 08:33 | XR_ITS ---
FINAL REPORT CLINICAL HISTORY: DEGENERATIVE JOINT DISEASE COMPARISON: 03/21/2012 FINDINGS: No fracture is identified. There are postoperative changes from lumbosacral fusion. There is moderate diffuse degenerative disc disease and spondylosis, slightly worse from prior exam. There is minimal retrolisthesis L2 on 3 and L3 on 4, stable. IMPRESSION: No fracture. Mild progression of degenerative changes. Reviewed, Interpreted and Dictated by Ronda Delgado MD Transcribed by Vero Middleton Authenticated and [facility]
--- OUTSIDE RECORDS SUMMARY | 2025-02-09 08:33 | XMS_ITS | Data Portability ---
Author Organization [facility] Address [address] [facility] [address] [place] [address] Care Team Providers Care Authorizer Name Role Phone GALE FIGUEROA Primary Care Provider [phone] Assessment No assessment recorded. Plan of Treatment Reminders Order Date Submit Date Provider Last Modified By Organization Details Last Modified Time Details Appointments None record ed. Lab None record ed. Referral None record ed. Procedures None record ed. Surgeries None record ed. Imaging None record ed. Medication Orders None record ed. Patient TargetsNo targets recorded. Patient Instructions Encounter Date Encounter Id Patient Instructions Last Modified By Organization Details Last Modified Time 05/20/2020 [id number] 1. Prior medical records reviewed - CT Scan of sinus report 2. Nasal endoscopy performed ; clinical photos obtained. Full risks, complications, and benefits of non-operative intervention have been thoroughly discussed. Understanding was expressed, informed consent given, and we will proceed with the discussed treatment plan. There were no questions for me at the end of the office visit. 3. Recommend humidifier for CPAP machine 4. Use saline rinse nightly. 5. F/u in 4-6 weeks- may recommend Septoplasty and bilateral SMR of inferior turbinates [email or web address] Not available 05/20/2020 14:50:21 He has new onset blood-tinged drainage from his nose particularly in the morning when he wakes up. He uses CPAP successfully to treat snoring and sleep apnea. He has no severe epistaxis and recent course of antibiotics was not helpful. Recent CT shows a mucous retention cyst in his maxillary sinus and a bony defect in the right ethmoid but no evidence of acute or chronic infection or neoplasm. His nasal endoscopy today shows a deviated septum to the right and generally his nasal mucosa is a little dry and inflamed and his turbinates are hypertrophic. His symptoms are probably related to his CPAP causing irritation and inflammation of his nasal mucosa and I recommend he use nasal saline irrigations every night before he goes to bed and I will see him again in 4-6 weeks. Once the inflammation resolves and the bleeding is no longer an issue, we can discuss whether he wants to pursue septoplasty and turbinate reduction to improve his nasal airway. [email or web address] Not available 05/20/2020 14:55:36 Reason for Referral None Reported. Results Created Date Observation Date Name Description Value Unit Range Abnormal Flag Note LastModifiedBy Organization Detail LastModifiedTime 04/29/19 21 04/18/2020 CT, sinus es, w/o contr ast No observ ation record ed. [email or web address] Not Available 2020 15:18:20 Result Notes None recorded. Problems No Known Problems Procedures Surgical History Date Name Laterality Status Provider Name and Address Organization Details Recorded Time Endoscopy Nasal; Diagnostic completed Estella Claudia [facility] 05/20/2020 14:47:21 7 Back Surgery completed [facility] 05/20/2020 14:29:11 4 procedure on gallbladder completed [facility] 05/20/2020 14:29:40 6 procedure on shoulder completed [facility] 05/20/2020 14:29:27 Imaging Results None recorded. Procedure Notes None recorded. Medical Equipment None Reported. Allergies Allergen ID Allergen Name Allergen Category Reaction Reaction Severity Criticality Documentation Date Start Date Code Code System Note Provider Name and Address Organization Details Recorded Time 998475 niacin medicatio n Not available Not available Not available 05/20/2020 7393 [facility] 14:27:24 Medications Name Sig Start Date Stop Date Status Note LastModified by Organization Details LastModified Time meloxicam 15 mg tablet TAKE 1 TABLET BY MOUTH ONCE DAILY FOR 90 DAYS active Not Available Not Available No t Available dexamethason e 2 mg tablet TAKE 1 TABLET BY MOUTH TWICE DAILY FOR 5 DAYS 05/20 completed Not Available Not Available Not Available pantoprazole 40 mg tablet,delay ed release TAKE 1 TABLET BY MOUTH ONCE DAILY FOR 90 DAYS active Not Available Not Available No t Available levothyroxin e 125 mcg tablet TAKE 1 TABLET BY MOUTH ONCE DAILY FOR 90 DAYS active Not Available Not Available No t Available montelukast 10 mg tablet TAKE 1 TABLET BY MOUTH ONCE DAILY FOR 90 DAYS active Not Available Not Available No t Available cefdinir 300 mg capsule TAKE 1 CAPSULE BY MOUTH EVERY 12 HOURS FOR 7 DAYS 05/20 completed Not Available Not Available Not Available ezetimibe 10 mg tablet TAKE 1 TABLET BY MOUTH ONCE DAILY FOR 90 DAYS active Not Available Not Available No t Available rosuvastatin 40 mg tablet TAKE 1 TABLET BY MOUTH ONCE DAILY AT BEDTIME active Not Available Not Available No t Available fenofibrate nanocrystall ized 145 mg tablet TAKE 1 TABLET BY MOUTH ONCE DAILY FOR 90 DAYS active Not Available Not Available No t Available Vitals Date Recorded Oxygen saturation Body height Body mass index (BMI) Body weight Body temperature Heart rate Systolic And Diastolic Provider Name and Address Organization Details Last Updated DateTime 98 % 182.88 cm 37.3 kg/m2 796150. 9 g 98.6 [degF] 74 /min 151/89 mm[Hg] Maryellen Ruiz [facility] 14:32:58 Social History Question Answer Notes LastModified by Organizat ion Details LastModified Time Tobacco Smoking Status Former Smoker Maryellen Sara [facility] 05/20/2020 14:25:44 How Much Tobacco Do You Smoke? 1 PPD [email or web address] Information not available 05/20/2020 How Many Years Have You Smoked Tobacco? 20 Information not available 05/20/2020 Sex: Unknown Functional Status Question Answer Note LastModified by Organizat ion Details LastModified Time What is your level of alcohol consumption? Occasional Information not available 05/20/2020 Mental Status None recorded. Family History Relationship Description Onset Age of this Age Resolved Age Notes LastModified by Organization Details LastModified Time Sister Complication of anesthesia [email or web address] Not available 03/2020 14:26:05 Father Family history of malignant neoplasm [email or web address] Not available 05/20 14:26:14 Brother [email or web address] Not av ailable 05/20/2020 14:26:23 Medical History Condition Response Kidney Stones N Hyperthyroidism N Heart Arrhythmia N Emphysema N Esophagus/swallowing troubles N Depression N Lung Disease N Hypothyroidism N Glaucoma N Anesthesia Complications N Anxiety Disorder N Arthritis Y Hearing Loss N Acid Reflux (GERD) Y Cancer N Stroke N Hoarseness N Alcohol Overuse/Alcohol Abuse N High Cholesterol N Snoring problems N Liver Disease N Headaches N Kidney Disease N Allergies/Hayfever N Heart Problems N Mental handicap N Ear or Hearing Problems N Gallbladder Disease N Migraines N Thyroid Problems N Goiter N Anemia N Immune System Disorder N Chest Pain N Stomach trouble Y Ulcers N Heart Attack ([place]) N Diabetes N Rheumatic Fever N Bleeding Disorder Y Tuberculosis N AIDS/HIV N Hyperlipidemia N Asthma N Epilepsy/Seizures N Sleep Disorder Y Hepatitis N Heart Disease N Hypertension N Past Encounters Encounter ID Performer Location Encounter Start Date Encounter Closed Date Diagnosis/Indication Diagnosis SNOMED-CT Code Diagnosis ICD10 Code Diagnosis IMO Codes Diagnosis Note [id number] MD [facility] [address] [place] [phone] 05/20/2020 14:00:11 05/20/2020 14:56:07 Chronic recurrent sinusitis 835288399 J32.9 Cyst of ma xillary sinus 751651542 J34.1 Obstructiv e sleep apnea of adult 9599449825 103 G47.33 Deviated nasal septum 12 8466239 J34.2 Hypertroph y of nasal turbinates 60311748 J34.3 Health Concerns Section Related Observation LastModified by Organization Detai ls LastModified Time None Recorded Concern Status LastModified by Organization Details LastModified Time None Recorded Advance Directives Directive None Recorded Payers Insurance Date Sequence Insurance Name Policy Number Policy Greenberg Covered Member ID Greenberg Member ID Guarantor Name 06/21/2020 1 [employer] [id number] R Ge Newton [id number] Ge Newton Notes Date Note Type Note Provider Name and Address Organization Details Recorded Time 05/20/2020 text/html Ge comes in today for consultation at the request of Dr.Brian Figueroa for a sinus evaluation. He noticed bloody thick mucoid drainage from the nose and assumed he had an acute sinus infection. He did see his PCP who treated him with a 7 day course of oral antibiotic which did not resolve all of his symptoms. He does have NORMAN which he treats with CPAP machine. The machine actually helps with his ability to breathe at night. He denies ever having surgery on the nose, nor has he fractured his nose to his knowledge. He can taste bloody drainage in the back of his throat throughout the day. The bleeding started out coming from the right side, but this morning he had bloody drainage from the left side of his nose. He does not have a humidification system on his CPAP machine. He does use saline rinse but only about 10 times per year. He had a CT Scan of the sinus obtained on 04/18/20 which showed no evidence of acute sinusitis, old right medial orbital wall fracture and a small retention cyst in the left maxillary sinus. SUE SIERRA MD [address] [place] [address], [phone], [facility] 05/20/2020 14:55:39
--- OUTSIDE RECORDS SUMMARY | 2025-02-09 08:33 | XMS_ITS | Clinical Summary ---
Author Organization [facility] Address [address] [place] [address] Care Team Providers Care Mold Machine Operator Name Role Phone Reinaldo Figueroa MD Primary Care Provider + [phone] Allergies Active Allergy Reactions Criticality Noted Date Comments Niacin Itching,Swelling Low 10/31/2021 Medications irbesartan (AVAPRO) 300 MG tablet Take 1 tablet by mouth Daily. 2 Active meloxicam (MOBIC) 15 MG tablet Take 1 tablet by mouth Daily. 2 Active fenofibrate (TRICOR) 145 MG tablet Take 1 tablet by mouth Daily. 2 Active ezetimibe (ZETIA) 10 MG tablet Take 1 tablet by mouth Daily. 2 Active levothyroxine (SYNTHROID, LEVOTHROID) 125 MCG tablet Take 1 tablet by mouth Daily. 2 Active pantoprazole (PROTONIX) 40 MG EC tablet Take 1 tablet by mouth Daily. 2 Active cholecalciferol (VITAMIN D3) 25 MCG (1000 UT) tablet Take 1 tablet by mouth Daily. Active Farxiga 10 MG tablet Take 20 mg by mouth Daily. 3 Active aspirin 81 MG EC tablet Take 1 tablet by mouth Daily. 90 tablet 3 3 Active amLODIPine (NORVASC) 2.5 MG tablet Take 1 tablet by mouth Daily. 90 tablet 3 5 Active Evolocumab (Repatha SureClick) solution auto-injector SureClick injection Inject 1 mL under the skin into the appropriate area as directed Every 14 (Fourteen) Days. 6 mL 4 5 Active metoprolol succinate XL (TOPROL-XL) 25 MG 24 hr tablet Take 1 tablet by mouth Daily. Need lab work for further refills. 90 tablet 3 5 Active rosuvastatin (CRESTOR) 40 MG tablet Take 1 tablet by mouth every night at bedtime. Need lab work for further refills. 90 tablet 3 5 Active Active Problems Problem Noted Date Diagnosed Date Coronary artery disease invo lving coronary bypass graft of [place] heart without angina pectoris 12/10/2022 Abnormal stress test 12/05/2021 Overview (12/08/2021): Stress MPS 12/05/21: EF normal, 2mm ST depression in inferolateral leads with symptoms of chest pain, abnormal perfusion with anterior septal, anterior and apical ischemia, high risk study Coronary artery calcification 10/31/2021 Overview (12/08/2021): September 2021 coronary calcium score: 3876, 97 percentile. Mixed hyperlipidemia 10/31/2021 Primary hypertension 10/31/2021 Encounters Date Type Department Care Team Description 12/14/2024 10:15 AM EDT Office Visit [facility] [address] [place] [address] Pre Sanchez III, MD Coronary artery disease involving coronary bypass graft of [place] heart without angina pectoris (Primary Dx); Mixed hyperlipidemia; Primary hypertension 12/14/2024 Travel 11/18/2024 Telephone [facility] [address] [facility] [address] [place] [address] Olga Delacruz, Automatic Machines Supervisor from Last 3 Months Family History Medical History Relation Name Comments Heart attack Father Carpenter Newton Heart disease Father Carpenter Newton Heart failure Father Carpenter Newton Hyperlipidemia Father Carpenter Newton COPD Mother Maykel Deans Heart attack Mother Maykel Deans Heart disease Mother Maykel Newton Cause of d eath was heart attack Heart failure Mother Maykel Newton Relation Name Status Comments Father Damion Deans Mother Maykel Newton Social History Tobacco Use Types Packs/Day Years [...] Orientation Straight 11/09/2024 4: 04 PM EDT Last Filed Vital Signs Vital Sign Reading Time Taken Comments Blood Pressure 130/78 12/14/2024 9:56 AM EDT Pulse 82 12/14/2024 9:56 AM EDT Temperature 36.6 C (97.8 F) 12/08/2021 9:09 AM EDT Respiratory Rate 16 12/08/2021 12:37 PM EDT Oxygen Saturation 96% 12/14/2024 9:56 AM EDT Inhaled Oxygen Concentration - - Weight 119 kg (262 lb 9.6 oz) 12/14/2024 9:56 AM EDT Height 182.9 cm (6') 12/14/2024 9:56 AM EDT Body Mass Index 35.61 12/14/2024 9:56 AM EDT Plan of Treatment Upcoming Encounters Date Type Department Care Team (Late st Contact Info) Description 12/14/2025 11:15 AM EDT Office Visit [facility] [address] [place] [address] Per Sanchez III, MD [address] [place] [id number] Health Maintenance Due Date Last Done Comments TDAP/TD VACCINES (1 - Tdap) 08/26/1978 COLOGUARD 08/26/2004 COLON CANCER SCREENING 5 YEA R SIGMOIDOSCOPY 08/26/2004 COLONOSCOPY 08/26/2004 COLORECTAL CANCER SCREENING 08/26/2004 CT COLONOGRAPHY 08/26/2004 FECAL OCCULT BLOOD TEST 08/26/2004 FIT Testing (1 year) 08/26/2004 LUNG CANCER SCREENING 08/26/2009 Pneumococcal Vaccine 50+ (1 of 1 - PCV) 08/26/2009 COVID-19 Vaccine (3 - Modern a risk series) 02/01/2021 01/04/2021, 05/18/2020, 04/20/2020 ANNUAL WELLNESS VISIT 10/31/2021 HEPATITIS C SCREENING 10/31/2021 LIPID PANEL 12/08/2022 12/08/2021 ZOSTER VACCINE (2 of 2) 01/31/2023 12/06/2022 AAA SCREEN ONCE 08/26/2024 INFLUENZA VACCINE 09/18/2024 12/12/2021, , 12/18/2019 Medical Devices Implanted Type Area Automatic Machines Supervisor Device Identifier Shelf Expiration Date Model / Serial / Lot Stnt Cornry Rx Xience/Skypoin t Rapdxng 3x18mm - [id number] Implanted:Qty: 1 on 12/08/2021 by Fanta Jeffery MD at [facility] [employer] [id number] / / [id number] Procedures Procedure Name Priority Date/Time Associated Diagnosis Comments ECG 12-LEAD Routine 12/14/2024 Coronary artery disease involving coronary bypass graft of c[place]il dehe heart without angina pectoris LIPID PANEL STAT 12/08/2021 9:16 AM EDT from Last 3 Months or Most Recently Relevant to Health Maintenance Results * ECG 12-LEAD (12/14/2024) Narrative 12/14/2024 Per Sanchez III, MD 12/14/2024 10:19 AM ECG 12 Lead Date/Time: 12/14/2024 10:17 AM Performed by: Per Sanchez III, MD Authorized by: Per Sanchez III, MD Comparison: compared with previous ECG from 12/08/2021 Similar to previous ECG Rhythm: sinus rhythm Clinical impression: normal ECG Procedure Note Per Sanchez III, MD - 12/14/2024 10:15 AM EDT [facility] Card[facility] Office visit Ge Newton 1960 There is no work phone number on file. VISIT DATE: 12/14/2024 PCP: Reinaldo Figueroa MD [address] [facility] [address] [facility] [id number] CC: Chief Complaint Patient presents with Coronary Artery Disease Coronary artery disease involving coronary bypass graft of c[place] de[place] heartwithout angina pectoris Previous cardiac studies and [...] artery disease involving coronary bypass graft of c[place] de[place] heartwithout angina pectoris 2. Mixed hyperlipidemia 3. [...] plan of care. Per Sanchez III, MD, FACC Per Sanchez III, MD ECG ORDERABLES Final Resul t * (ABNORMAL) Lipid Panel (12/08/2021 9:16 AM EDT) Total Cholesterol 199 0 - 200 mg/dL 12/08/2021 10:00 AM EDT [facility] Triglycerides 94 0 - 150 mg/dL 12/08/2021 10:00 AM EDT [facility] HDL Cholesterol 39(L) 40 - 60 mg/dL 12/08/2021 10:00 AM EDT [facility] LDL Cholesterol 143(H) 0 - 100 mg/dL 12/08/2021 10:00 AM EDT [facility] VLDL Cholesterol 17 5 - 40 mg/dL 12/08/2021 10:00 AM T [facility] LDL/HDL Ratio 3.62 12/08/2021 10:00 AM EDT [facility] Blood Line / Unknown 12/08/2021 9: 16 AM EDT 12/08/2021 9:28 AM EDT Narrative [facility] - 12/08/2021 10:00 AM EDT Cholesterol Reference Ranges (U.S. Department of Health and Human Services ATP III Classifications) Desirable <200 mg/dL Borderline High 200-239 mg/dL High Risk >240 mg/dL Triglyceride Reference Ranges (U.S. Department of Health and Human Services ATP III Classifications) Normal <150 mg/dL Borderline High 150-199 mg/dL High 200-499 mg/dL Very High >500 mg/dL HDL Reference Ranges (U.S. Department of Health and Human Services ATP III Classifications) Low <40 mg/dl (major risk factor for CHD) High >60 mg/dl ('negative' risk factor for CHD) LDL Reference Ranges (U.S. Department of Health and Human Services ATP III Classifications) Optimal <100 mg/dL Near Optimal 100-129 mg/dL Borderline High 130-159 mg/dL High 160-189 mg/dL Very High >189 mg/dL Alvina Paiz PA-C LAB BLOOD ORDERABLES Final Result [facility]
[address] [place] [address], from Last 3 Months or Most Recently Relevant to Health Maintenance Insurance MEDICARE A & B Member Subscriber Plan / Payer (Ef fective 2024-Present) Name:Ge Newton Member ID:[id number] Relation to Subscriber:Self Name:Ge Newton Subscriber ID:[id number] Payer ID:[id number] Group ID:Not on file Type:Not on file Address: [facility] [address] [place] [id number] [facility] Advance Directives * CPR (Attempt to Resuscitate) (Latest Code Status on File) Date Activated Date Inactivated Comments 12/08/2021 1:04 PM 12/08/2021 6:50 PM Question Answer Comments Code Status (Patient has no pulse and is not breathing): CPR (Attempt to Resuscitate) Medical Interventions (Patie nt has pulse or is breathing): Full Level Of Support Discussed With: Patient Care Teams Mold Machine Operator Relationship Specialty Start Date End Date Reinaldo Figueroa MD [address] [place] [facility] [address] [facility] [address] [place] [address] PCP - General Family Medicine 10/31/21
--- OUTSIDE RECORDS SUMMARY | 2025-02-09 08:33 | XMS_ITS ---
Author Organization [employer] [facility] Address [address] [place] [id number] Care Team Providers Care Mathematics Technician Name Role Phone Reinaldo Figueroa MD Primary Care Provider + [phone] Cardiology - External Fill Status:Enrolled (Active) Start date:12/24/2023 Enrollment date:12/24/2023 Current support & services provided:Clinical Assessment, Refill Coordination , Benefits Investigation, External Pharmacy Dispensing Linked medications:Evolocumab (Active) Linked problems:Coronary artery calcification (Active), Coronary artery disease involving coronary bypass graft of [place] heart without angina pectoris (Active), Mixed hyperlipidemia (Active) Overview Loni Case Team Name Relationship Phone Virginie Bates PharmD Pharmacist [phone] Sherri Lantigua Radio Personality Garbage Truck Helper Per Sanchez III, MD Cardiology Consultant Continued Care and Services Coordination
== END 2025-02-09 23:59 ==
LOC: RAD 08:29
PROVIDERS: PCP Family Medicine; Visit Provider Chiropractor
DX: M47.816 Spondylosis without myelopathy or radiculopathy, lumbar region (principal); M51.369 Other intervertebral disc degeneration, lumbar region without mention of lumbar back pain or lower extremity pain; M43.16 Spondylolisthesis, lumbar region; Z98.1 Arthrodesis status
CPT/HCPCS: 72100